=== PATIENT | male | born 1935 | race African-American/Black ===

== ENCOUNTER 2018-09-24 00:17 | Inpatient (IN) | payer OTHER, BC ==
--- NOTE | 2018-09-24 00:24 | PDOC ---
Attending Attestation - Resident Resident Name: Ronni Anderson - ED Attending Attestation I have performed the following: I have examined & evaluated the patient, The case was reviewed & discussed with the resident, I agree w/resident's findings & plan, Exceptions are as noted - HPI HPI: 09/24/18 01:30 83 year old male c/ hx of HTN, borderline DM, HLD, CHF, asthma/COPDprior stroke with no residual deficits BIBEMS for bipin díaz. History obtained from pt's girlfriend. The patient was in his usual state of health. Went to a event with the pt's girlfriend. At 9 pm, the patient's girlfriend noted that he seemed to be "limping" with his left leg. Initially, she didn't think much of it and thought that it was musculoskeletal. However, around 11 pm, she started to note that he had left facial droop, inability to move left arm and leg leg. She called EMS and pt was brought in as a code mohamud. EMS took a fingerstick and noted elevated glucose. Code mohamud activated here in ED. Pt had a stat noncontrast CT head. When I initially evaluated the patient, the patient had right eye gaze preference, left sided neglect, left facial droop, left arm and left leg weakness (no effort). Given pt unable to consent, two physician consent was obtained and a stat CTA of brain was ordered. CT head and CTA brain was negative. However, during the stay in the ED, the patient's symptoms have become increasingly improved and now demonstrates full strength in left upper and left lower extremity. No facial droop. But pt appears to be somewhat confused and altered. According to girlfriend, the patient was not recently ill. - Physicial Exam PE: 09/24/18 01:40 (Initial examination when I saw patient when he arrived). GENERAL: Awake, alert, but AAOx 1.5 (thinks its September but knows in hospital) in no acute distress HEAD: No signs of trauma EYES: EOMI, sclera anicteric, conjunctiva clear ENT: Auricles normal inspection, hearing grossly normal, nares patent, NECK: Normal ROM, supple LUNGS: Breath sounds equal, clear to auscultation bilaterally. No wheezes, and no crackles HEART: Regular rate and rhythm, normal S1 and S2, no murmurs, rubs or gallops ABDOMEN: Soft, nontender, No guarding, no rebound. No masses EXTREMITIES: Normal range of motion, no edema. No clubbing or cyanosis. No cords, erythema, or tenderness NEUROLOGICAL: +Left facial droop. no effort against left upper and left lower extremity. right gaze preference. Intermittently following directions. Has left sided neglect. SKIN: Warm, Dry, normal turgor, no rashes or lesions noted. - Critical Care Time Total Critical Care Time: 35 Critical Care Statement: The care of this patient involved high complexity decision making to prevent further life threatening deterioration of the patient 's condition and/or to evaluate & treat vital organ system(s) failure or risk of failure. - Medical Decision Making 09/24/18 01:50 Vital Signs Temp Pulse Resp BP Pulse Ox 98.1 F 104 H 20 167/91 98 09/24/18 00:17 09/24/18 00:17 09/24/18 00:17 09/24/18 00:17 09/24/18 00:17 I concerns were for ischemic stroke. The patient was finding symptomsconcerning for a right MCA stroke. Given the circumstances, we had made a decision to obtain a CT angiogram of the brain before the creatinine return. However, the patient's symptoms have resolved drastically but has persistent confusion and altered mental status. This be related to hyperglycemia? We'll need a full investigation including blood work. Rule out diabetic ketoacidosis. We'll need to rule out occult infectious etiology. Labs, chest x-ray. Admission to the hospital. 09/24/18 01:53 Pt signed out to night attending Dr. Villegas for further evaluation and management. NIH Stroke Scale - Last Known Well Date/Time & Onset Date Last Known Well: 09/24/18 Time Last Known Well: 21:00 - Initial Evaluation Level of consciousness: Alert Ask patient the month and their age: Answers one correctly Ask patient to open & close eyes; make fist and let go: Obeys both correctly Best gaze (horizontal eye movement): Partial gaze palsy Visual field testing: No visual field loss Facial paresis (Show teeth/raise eyebrows/close eyes tight): Partial paralysis ( total or near paralysis of lower face) Motor Function: Left Arm: No effort against gravity Motor Function: Right Arm: Normal (extends arm 90 (or 45) degrees for 10 seconds without drift Motor Function: Left Leg: Some effort against gravity Motor Function: Right Leg: Normal (extends leg 30 degrees for 5 seconds without drift) Limb Ataxia: No ataxia Sensory(Use pinprick test arms,legs,trunk,face/side to side): Normal Best language (Describe picture, name items, read sentences): Mild to moderate aphasia Dysarthria (read several words): Normal articulation Extinction and Inattention: Inattention or extinction bilaterally to one of the sensory modalities - Total Score NIH Stroke Scale Score: 11 tPA Exclusion checklist 3-4.5h - Time Elapsed Date last known well: 09/24/18 Time last known well: 21:00 Elaspsed time: 3 Day(s) and 13 Hour(s) and 28 Minutes - Thrombolytic Therapy Candidate Is patient eligible for thrombolytic therapy: No - Relative Exclusion Criteria 3-4.5 hr : No Rapid improvement: Yes Recent acute NM (w/in previous 3 months): No Seizure at onset with postictal residual neuro impairments: No Major surgery or serious trauma w/in previous 14 days: No Recent GI or hemorrhage (w/in previous 21 days): No - Add'l Relative Exclusion 3-4.5 hr Age > 80: Yes Hx of both diabetes AND prior ischemic stroke: Yes Taking an oral anticoagulant regardless of INR: No - Ineligibility reason(s) Reasons No tPA given: See reason(s) noted above
[2018-09-24] MEDS ORDERED: SODIUM CHLORIDE 1,000 ML IV SCH (00:30)
--- NOTE | 2018-09-24 01:04 | PDOC ---
History of Present Illness - General Chief Complaint: CVA/TIA Stated Complaint: STROKE Time Seen by Provider: 09/24/18 00:18 - History of Present Illness Initial Comments: 09/24/18 00:58 83 yo M with h/o HTN, HLD, CHF, COPD, CVA ( 2016), not on anticoagulation BIBA with left sided facial droop, LUE, and LLE weakness. EMS reprots patient slightly hypertensive SBP 160's, and BS~elevated (out of range). Patient spouse at bedside to assist in report. She states that patient was in normal state of health prior to 1700 (09-23-18). She states that patient developed left sided limping gait when walking from library to car. Patient then developed left arm weakness, and left facial drooping shortly after. Spouse reports that patient then was unable to follow commands, and avoided eye contact, speaking in opposite direction of spouse. Patient then developed nonsensible speech, and appeared that he did not comprehend spouses speech or questions. Patient denies WOODWARD, vision change, palpitations, cough, wheezing, orthopena, PND , leg swelling/pain, F,C, CP, SOB, urinary complaints, hematuria, BPR, abdominal pain, diarrhea, constipation, lightheadedness. PMHx: as noted above. Patient does not f/w neurology. ROS: as noted Allergies: NKDA Past History - Past Medical History Allergies/Adverse Reactions: Allergies Allergy/AdvReac Type Severity Reaction Status Date / Time No Allergy Information Allergy Verified 09/24/18 00:26 Available Home Medications: Ambulatory Orders Albuterol Sulfate [Proair Hfa] 8.5 gm IH DAILY 09/24/18 Allopurinol [Zyloprim -] 300 mg PO DAILY 09/24/18 Aspirin [ASA -] 325 mg PO DAILY 09/24/18 Atorvastatin Ca [Lipitor] 80 mg PO HS 09/24/18 Clopidogrel Bisulfate [Clopidogrel] 75 mg PO DAILY 09/24/18 Fluticasone/Umeclidin/Vilanter [Trelegy Ellipta 100-62.5-25] 1 each IH DAILY 09/13 Hydrochlorothiazide 12.5 mg PO DAILY 09/24/18 Montelukast Na [Singulair -] 10 mg PO HS 09/24/18 Nebivolol HCl [Bystolic] 20 mg PO DAILY 09/24/18 Olmesartan/Hydrochlorothiazide [Benicar Hct 40-12.5 mg Tablet] 1 each PO DAILY 09/24/18 Pantoprazole Sodium 40 mg PO DAILY 09/24/18 predniSONE 5 mg PO DAILY 09/24/18 - Suicide/Smoking/Psychosocial Hx Smoking History: Never smoked Have you smoked in the past 12 months: No Information on smoking cessation initiated: No Hx Alcohol Use: Yes (occasional) Drug/Substance Use Hx: No Review of Systems - Review of Systems Comments:: 09/24/18 01:18 GENERAL/CONSTITUTIONAL: No fever or chills. No weakness. HEAD, EYES, EARS, NOSE AND THROAT: No change in vision. No ear pain or discharge. No sore throat. CARDIOVASCULAR: No chest pain or shortness of breath RESPIRATORY: No cough, wheezing, or hemoptysis. GASTROINTESTINAL: + nausea, vomiting. No diarrhea or constipation. GENITOURINARY: No dysuria, frequency, or change in urination. MUSCULOSKELETAL: No joint or muscle swelling or pain. No neck or back pain. SKIN: No rash NEUROLOGIC: + change in strength/sensation. No headache, vertigo, loss of consciousness, or c ENDOCRINE: No increased thirst. No abnormal weight change HEMATOLOGIC/LYMPHATIC: No anemia, easy bleeding, or history of blood clots. ALLERGIC/IMMUNOLOGIC: No hives or skin allergy. *Physical Exam - Vital Signs Last Vital Signs Temp Pulse Resp BP Pulse Ox 98.1 F 104 H 20 167/91 98 09/24/18 00:17 09/24/18 00:17 09/24/18 00:17 09/24/18 00:17 09/24/18 00:17 - Physical Exam Comments: 09/24/18 01:10 GENERAL: Awake, alert, oriented to self and date, in no acute distress HEAD: + Left sided lower facial droop, with depressed lateral comissure of mouth , sparing forehead. No signs of trauma, normocephalic, atraumatic EYES: PERRLA, EOMI, sclera anicteric, conjunctiva clear ENT: Auricles normal inspection, hearing grossly normal, nares patent, oropharynx clear without exudates. Moist mucosa NECK: Normal ROM, supple, no lymphadenopathy, JVD, or masses LUNGS: No distress, speaks full sentences, clear to auscultation bilaterally HEART: Regular rate and rhythm, normal S1 and S2, no murmurs, rubs or gallops, peripheral pulses normal and equal bilaterally. ABDOMEN: Soft, nontender, normoactive bowel sounds. No guarding, no rebound. No masses EXTREMITIES :4+/5 RUE/RLE, 3/5 LUE, 2/5 LLE. Diminished sensation to pinprick LUE/LLE. Normal inspection, Normal range of motion, no edema. Patient speech is sparse, and limited comprehension, with non repetitive utterances, of sentences. No clubbing or cyanosis. NEUROLOGICAL: Cranial nerves II through XII grossly intact. no focal sensorimotor deficits SKIN: Warm, Dry, normal turgor, no rashes or lesions noted NIH Stroke Scale - Last Known Well Date/Time & Onset Date Last Known Well: 09/23/18 Time Last Known Well: 17:00 - Initial Evaluation Level of consciousness: Alert Ask patient the month and their age: Answers both correctly Ask patient to open & close eyes; make fist and let go: Obeys both correctly Best gaze (horizontal eye movement): Normal Visual field testing: No visual field loss Facial paresis (Show teeth/raise eyebrows/close eyes tight): Partial paralysis ( total or near paralysis of lower face) Motor Function: Left Arm: Drift Motor Function: Right Arm: Normal (extends arm 90 (or 45) degrees for 10 seconds without drift Motor Function: Left Leg: No effort against gravity Motor Function: Right Leg: Normal (extends leg 30 degrees for 5 seconds without drift) Limb Ataxia: Present in one limb Sensory(Use pinprick test arms,legs,trunk,face/side to side): Mild to moderate decrease in sensation Best language (Describe picture, name items, read sentences): Mild to moderate aphasia Dysarthria (read several words): Normal articulation Extinction and Inattention: No abnormality - Total Score NIH Stroke Scale Score: 9 tPA Exclusion Checklist 0-3hr - Exclusion Criteria 0-3hr SBP greater than 185 or DBP greater than 110mmHg despite tx: No Recent IC/spinal surgery,head trauma or stroke w/in last 3mo: No Hx of previous IC hemorrhage, IC neoplasm, AVM or aneurysm: No Active internal bleeding: No Moderate Sedation - Procedure Monitoring Vital Signs: Procedure Monitoring Vital Signs Temperature 98.1 F 09/24/18 00:17 Pulse Rate 104 H 09/24/18 00:17 Respiratory Rate 20 09/24/18 00:17 Blood Pressure 167/91 09/24/18 00:17 O2 Sat by Pulse Oximetry (%) 98 09/24/18 00:17 Critical Care Time/MDM Note Total Critical Care Time: 90 Critical Care Statement: The care of this patient involved high complexity decision making to prevent further life threatening deterioration of the patient 's condition and/or to evaluate & treat vital organ system(s) failure or risk of failure. - Medical Decision Making Note: 09/24/18 01:03 83 yo M with h/o HTN, HLD, CHF, COPD, ( 2016), not on anticoagulation BIBA with left sided facial droop, LUE, and LLE weakness. BP 167/91, HR 104, vitals otherwise wnl, AF. Initial BS reading noted by EMS ~out of range. NIHSS~9. Code mohamud initiated in ED. CTH to assess for possible CVA. Will also assess for VBI/ TIA, cardiac dysarrythmias, hypoglycemia, electrolyte abnml, metabolic and toxic derangements, acid-base disturbances, infection. Ed Course: Stroke order set, precautions CTH with no evidence of hemmorhage. Consented for patient to undergoe CTA despite no baseline labs, or renal function obtained due to NIHSS ~9, and non improving serial neuro checks. Patient altered mental status and unable to consent, but spouse at bedside consents to obtaining study. CTH: FINDINGS: The ventricular system is midline and nondilated mild-to- moderate cortical atrophy and mild small vessel ischemic changes are noted. There is no bleed, mass, extra- axial fluid collection or mass effect. No skull fracture or skull lesion is identified. Left maxillary sinus is completely opacified, consistent with sinusitis there is also mild right maxillary sinus mucosal thickening. The other paranasal sinuses and mastoid air cells are clear. IMPRESSION: No acute intracranial pathology. Left maxillary sinusitis. CTA HEAD: FINDINGS: The right and left anterior, middle and posterior cerebral arteries are normal without clot, occlusion, high-grade stenosis or discrete aneurysm formation. Distal vertebral basilar system is normal. The distal right and left internal carotid arteries are patent. No areas of abnormally increased or decreased enhancement. IMPRESSION: Normal CT angiogram head. 09/24/18 01:41 neuro consult placed. 09/24/18 01:43 Neuro exam with improved facial droop, LUE, LLE strength. 09/24/18 02:34 BUN/Cr: 20/1.4 BS~517 Ca: 6.8, albumin 3.1 , corrected ca 7.1 EKG: NSR with 1st degree sinus arrythmia, nml interval axis and QT. +LAD. Absent FELICIA, STD. trop 0.05 UA: Neg 09/24/18 03:[address] Phillips. Admitted. 09/24/18 05:[address] phillips and Dr. Vernon patient to be admitted to ICU for HHS NS, Pottasium chloride x 3 09/24/18 05:35 Rectal temp 101.2 Tylenol 1000 mg IV *DC/Admit/Observation/Transfer Diagnosis at time of Disposition: TIA (transient ischemic attack) - Discharge Dispostion Condition at time of disposition: Fair Decision to Admit order: Yes - Referrals - Patient Instructions - Post Discharge Activity Imaging - Results Cat Scan: Other (Patient Information: : 1935 Order Type: Preliminary Name: KERA HIGGINS Sex: M Study Description: CT CTA HEAD Modality: CT Location: [facility] Referring Physician: STACY SHELL Comments: Ryan Mishra MD wrote on Sep 24, 2018 at 01:10 AM: Referring Physician: STACY SHELL Patient Name: RONALDO COTE THIS IS A PRELIMINARY REPORT FROM [facility] IN[facility] TECHNICIAN DATE OF SERVICE: 2018-09-24 00:43:04 IMAGES: [id number] EXAM: BRAIN CTA (STROKE) HISTORY: Rule out stroke COMPARISON: None. FINDINGS: The right and left anterior, middle and posterior cerebral arteries are normal without clot, occlusion, high-grade stenosis or discrete aneurysm formation. Distal vertebral basilar system is normal. The distal right and left internal carotid arteries are patent. No areas of abnormally increased or decreased enhancement. IMPRESSION: Normal CT angiogram head. CONFIDENTIALITY NOTICE: This information is intended only for the use of the recipient(s) named above. If you are not the intended recipient, or a person responsible for delivering it to the intended recipient, you are hereby notified that any disclosure, copying, distribution or use of any of the information contained in or attached to this transmission is STRICTLY PROHIBITED. If you have received this transmission in error, please immediately notify [facility] and destroy the original transmission and its attachments without saving them in any manner [address] [place] [address] Phone : [phone] Fax: Email: [email or web address] Web : [email or web address] Patient Information: : 1935 Order Type: Preliminary Name: KERA HIGGINS Sex: M Study Description: CT CTA HEAD Modality: CT Location: [facility] Referring Physician: STACY SHELL One or more of the following dose reduction techniques were used: automated exposure control, adjustment of the mA and/or kV according to patient size, use of iterative reconstructive technique. THIS DOCUMENT HAS BEEN ELECTRONICALLY SIGNED Fareed Mishra MD 09/24/2018 01:09 EST M.D. Please call [facility] [phone] ([phone] with questions. Ryan Mishra MD Clinicians - Please contact [facility] with further questions at [phone]) Patients - Please contact your Ordering Provider with questions.) Other: Other (Patient Information: : 1935 Order Type: Preliminary Name: KERA HIGGINS Sex: M Study Description: CT HEAD Modality: CT Location: [facility] Referring Physician: STACY SHELL ADDENDUM Comments: Ryan Mishra MD wrote on Sep 24, 2018 at 12:49 AM: Referring Physician: STACY COTE This finding was verbally communicated to Dr. Stacy MD on WedSeptember 24 2018 00:48:02 EST. One or more of the following dose reduction techniques were used: automated exposure control, adjustment of the mA and/or kV according to patient size, use of iterative reconstructive technique. THIS DOCUMENT HAS BEEN ELECTRONICALLY SIGNED Fareed Mishra MD 09/24/2018 00:48 EST M.D. Please call [facility] [phone] with questions. Ryan Mishra MD Comments: Ryan Mishra MD wrote on Sep 24, 2018 at 12:39 AM: Referring Physician: STACY SHELL CONFIDENTIALITY NOTICE: This information is intended only for the use of the recipient(s) named above. If you are not the intended recipient, or a person responsible for delivering it to the intended recipient, you are hereby notified that any disclosure, copying, distribution or use of any of the information contained in or attached to this transmission is STRICTLY PROHIBITED. If you have received this transmission in error, please immediately notify [facility] and destroy the original transmission and its attachments without saving them in any manner [address] [place] [address] [place] [address] Phone: [phone] ([phone] Fax: Email: [email or web address] Web: [email or web address] Patient Information: : 1935 Order Type: Preliminary Name: KERA HIGGINS Sex: M Study Description: CT HEAD Modality : CT Location: [facility] Referring Physician: STACY SHELL Patient Name: RONALDO COTE THIS IS A PRELIMINARY REPORT FROM [facility] TECHNICIAN DATE OF SERVICE: 2018-09-24 00:19:25 IMAGES: [id number] EXAM: HEAD CT (STROKE) HISTORY: Left sided weakness COMPARISON: None. FINDINGS: The ventricular system is midline and nondilated [id number] cortical atrophy and mild small vessel ischemic changes are noted. There is no bleed, mass, extra-axial fluid collection or mass effect. No skull fracture or skull lesion is identified. Left maxillary sinus is completely opacified, consistent with sinusitis there is also mild right maxillary sinus mucosal thickening. The other paranasal sinuses and mastoid air cells are clear. IMPRESSION: No acute intracranial pathology. Left maxillary sinusitis. One or more of the following dose reduction techniques were used: automated exposure control, CONFIDENTIALITY NOTICE: This information is intended only for the use of the recipient(s) named above. If you are not the intended recipient, or a person responsible for delivering it to the intended recipient, you are hereby notified that any disclosure, copying, distribution or use of any of the information contained in or attached to this transmission is STRICTLY PROHIBITED. If you have received this transmission in error, please immediately notify [facility] and destroy the original transmission and its attachments without saving them in any manner [address] [place] [address] Phone: [phone] ( [phone]) Fax: Email: [email or web address] Web: [email or web address] Patient Information: : 1935 Order Type: Preliminary Name: KERA HIGGINS Sex: M Study Description: CT HEAD Modality: CT Location: [facility] Referring Physician: STACY SHELL adjustment of the mA and/or kV according to patient size, use of iterative reconstructive technique. THIS DOCUMENT HAS BEEN ELECTRONICALLY SIGNED Fareed Mishra MD 09/24/2018 00:37 GUANACO Stewart. Please call [facility] [phone] ([phone] with questions. Ryan Mishra MD Clinicians - Please contact [facility] with further questions at [phone] ([phone] Patients - Please contact your Ordering Provider with questions)
[2018-09-24 01:43] LABS: BASO % 0.5 % (0-2.0); HEMATOCRIT 37.2 % (35.4-49); HEMOGLOBIN 12.6 GM/dL (11.7-16.9); LYMPH % 15.5 % (8-40); MCH 30.7 pg (25.7-33.7); MCHC 33.7 g/dl (32.0-35.9); MEAN PLT VOLUME 9.4 fl (7.5-11.1); MONO % 7.4 % (3.8-10.2); NEUT % 74.6 % (42.8-82.8); PLATELET COUNT 154 K/MM3 (134-434); RBC 4.09 M/mm3 (4.00-5.60); RDW 13.5 % (11.9-15.9); WHITE BLOOD COUNT 4.9 K/mm3 (4.0-10.0)
[2018-09-24 01:53] LABS: URINE APPEARANCE CLEAR; URINE BILIRUBIN NEGATIVE (<2.0 mg/dL); URINE COLOR STRAW; URINE GLUCOSE (UA) 3+ (NEGATIVE); URINE KETONE NEGATIVE (NEGATIVE); URINE LEUK ESTERASE NEGATIVE (NEGATIVE); URINE NITRITE NEGATIVE (NEGATIVE); URINE PROTEIN NEGATIVE (NEGATIVE); URINE UROBILINOGEN NEGATIVE mg/dL (0.2-1.0)
[2018-09-24 01:56] LABS: INR 1.13 (0.83-1.09); PROTHROMBIN TIME (PATIENT) 13.4 SEC (9.7-13.0)
[2018-09-24 02:02] LABS: EPI CELLS RARE /HPF (FEW)
[2018-09-24 02:26] LABS: GLUCOSE,RANDOM 517 mg/dL (74-106)
[2018-09-24 02:27] LABS: CO2 24 mmol/L (21-32); CREATININE 1.4 mg/dL (0.55-1.3)
[2018-09-24 02:28] LABS: ALBUMIN 3.1 g/dl (3.4-5.0); CALCIUM 6.8 mg/dL (8.5-10.1)
--- NOTE | 2018-09-24 03:09 | PN ---
Teaching Attending Note Name of Resident: Tony Mckay ATTENDING PHYSICIAN STATEMENT I saw and evaluated the patient. I reviewed the resident's note and discussed the case with the resident. I agree with the resident's findings and plan as documented. SUBJECTIVE: Patient is an 83 year old man with PMH of HTN, HLD, CHF, COPD, CVA ( 2016), not on anticoagulation, boderline DM presenting with left sided facial droop, LUE, and LLE weakness. EMS reprots patient slightly hypertensive with SBP 160's, and BS~elevated (out of range). Patient's girlfriend at bedside says that patient was in normal state of health prior to 1700 (09-23-18). She states that patient developed left sided limping gait when walking from library to car. Patient then developed left arm weakness, and left facial drooping shortly after. She reports that patient then was unable to follow commands, and avoided eye contact , speaking in opposite direction of spouse. Patient then developed nonsensible speech, and appeared that he did not comprehend spouses speech or questions. Patient denies headache, vision change, palpitations, cough, wheezing, orthopena , PND, leg swelling/pain, fever, chills, chest pain, SOB, urinary complaints, hematuria, abdominal pain, diarrhea, constipation or lightheadedness. OBJECTIVE: Somnolent but arousable Vital Signs Period Temp Pulse Resp BP Sys/Rick Pulse Ox Last 24 Hr 98.1 F 104 20 167/91 98 HEENT: No Jaundice, eye redness or discharge, PERRLA, EOMI. Normocephalic, atraumatic. External ears are normal; No nasal discharge. Neck: Supple, nontender. No palpable adenopathy or thyromegaly. No JVD Chest: Good effort. Clear to auscultation and percussion. Heart: Regular. No S3, rub or murmur Abdomen: Not distended, soft, nontender and no HSM. No rebound or guarding. Normoactive bowel sounds. Ext: Peripheral pulses intact. No leg edema. Skin: Warm and dry. No petechiae, rash or ecchymosis. Neuro: Somnolent but arousable. Left facial droop and left sided weakness. Unable to follow commands. Sluggish. Sensation grossly intact in all four extremities. Current Medications Generic Name Dose Route Start Last Admin Trade Name Freq PRN Reason Stop Dose Admin Sodium Chloride 1,000 mls @ 42 mls/hr 09/24/18 00:30 09/24/18 01:27 Normal Saline - IV 42 mls/hr ASDIR NESSA Administration Home Medications Medication Instructions Recorded Albuterol Sulfate [Proair Hfa] 8.5 gm IH DAILY 09/24/18 Allopurinol [Zyloprim -] 300 mg PO DAILY 09/24/18 Aspirin [ASA -] 325 mg PO DAILY 09/24/18 Atorvastatin Ca [Lipitor] 80 mg PO HS 09/24/18 Clopidogrel Bisulfate [Clopidogrel] 75 mg PO DAILY 09/24/18 Fluticasone/Umeclidin/Vilanter 1 each IH DAILY 09/24/18 [Trelegy Ellipta 100-62.5-25] Hydrochlorothiazide 12.5 mg PO DAILY 09/24/18 Montelukast Na [Singulair -] 10 mg PO HS 09/24/18 Nebivolol HCl [Bystolic] 20 mg PO DAILY 09/24/18 Olmesartan/Hydrochlorothiazide 1 each PO DAILY 09/24/18 [Benicar Hct 40-12.5 mg Tablet] Pantoprazole Sodium 40 mg PO DAILY 09/24/18 predniSONE 5 mg PO DAILY 09/24/18 Abnormal Lab Results 09/24/18 09/24/18 09/24/18 01:33 01:33 01:45 PT with INR 13.40 H INR 1.13 H Sodium 134 L Potassium 3.3 L BUN 20 H Creatinine 1.4 H Random Glucose 517 H* Calcium 6.8 L* Total Protein 5.7 L Albumin 3.1 L Ur Specific [place] 1.042 H Urine Glucose (UA) 3+ H Urine Blood 1+ H ASSESSMENT AND PLAN: 1. 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 CT scan and CTA of brain didnot reveal any acute abnormality. TpA not indicated. ER staff say his symptoms and clinical findings improved while in the ER. Will treat with multiple doses of IV KCL and raise serum potassium before giving IV insulin. HCTZ likely contributed to severe hypokalemia. Check Mg+ level and hydrate with IV NS slowly. Will get a brain MRI if AMS does not improve in 24 hours. Consult neurology. Once stable will craft an appropriate outpatient diabetic drug treatment regimen for him. Will provide comprehensive diabetes care with patient teaching and counseling about the importance of adherence to prescribed diabetes regimen , euglycemia, eye care and foot care. 2. Hypoalbuminemia - Possibly due to combined effects of malnutrition and inflammation associated with comorbid chronic conditions. Will ensure adequate dietary protein intake and also consult bricklayer apprentice. 3. PATRICK - Has risk factors for CKD. Likely has PATRICK due to dehydration. Will consult nephrology and avoid nephrotoxic agents such as NSAIDS, aminoglycosides , contrast dyes and certain Alternative medicine products. 4. Obesity - Will provide patient all the necessary assistance, counseling and positive reinforcement to facilitate weight loss. Consult bricklayer apprentice. 5. Uncontrolled Hypertension - Restart outpatient antihypertensive drugs and revise regimen to ensure smooth [id number] good BP control. Nonpharmacologic measures to control hypertension like weight loss, salt restriction and exercise discussed. 6. DVT prophylaxis - Heparin 5000u sq tid. 7. Advance directives - Full code
--- NOTE | 2018-09-24 03:46 | HP ---
CHIEF COMPLAINT: left side weakness, confusion PCP: Ashley Hernandez HISTORY OF PRESENT ILLNESS: history obtained from his girl friend and Ed records as pt is poor historian and confused 83 yo M with h/o HTN, HLD, CHF, COPD, CVA ( 2016), not on anticoagulation BIBA with left sided facial droop, LUE, and LLE weakness. EMS reports patient slightly hypertensive SBP 160's, and BS~elevated (out of range). Patient spouse at bedside to assist in report. She states that patient was in normal state of health prior to 1700 (09-23-18). She states that patient developed left sided limping gait when walking from library to car. Patient then developed left arm weakness, and left facial drooping shortly after. Spouse reports that patient then was unable to follow commands, and avoided eye contact, speaking in opposite direction of spouse. Patient then developed non sensible speech, and appeared that he did not comprehend spouses speech or questions. Patient spouse denies history of WOODWARD, vision change, palpitations, cough, wheezing, orthopena, PND, leg swelling/pain, F,C, CP, SOB, urinary complaints, hematuria, BPR, abdominal pain, diarrhea, constipation, lightheadedness. ER course was notable for: (1)CT head , CTA (2)cbc , cmp (3)IV fluids Recent Travel:denies PAST MEDICAL HISTORY: as per HPI PAST SURGICAL HISTORY: unknown at this point as pt is confused Family History:non contributory Allergies No Allergy Information Available Allergy (Verified 09/24/18 00:26) HOME MEDICATIONS: Home Medications Medication Instructions Recorded Albuterol Sulfate [Proair Hfa] 8.5 gm IH DAILY 09/24/18 Allopurinol [Zyloprim -] 300 mg PO DAILY 09/24/18 Aspirin [ASA -] 325 mg PO DAILY 09/24/18 Atorvastatin Ca [Lipitor] 80 mg PO HS 09/24/18 Clopidogrel Bisulfate [Clopidogrel] 75 mg PO DAILY 09/24/18 Fluticasone/Umeclidin/Vilanter 1 each IH DAILY 09/24/18 [Trelegy Ellipta 100-62.5-25] Hydrochlorothiazide 12.5 mg PO DAILY 09/24/18 Montelukast Na [Singulair -] 10 mg PO HS 09/24/18 Nebivolol HCl [Bystolic] 20 mg PO DAILY 09/24/18 Olmesartan/Hydrochlorothiazide 1 each PO DAILY 09/24/18 [Benicar Hct 40-12.5 mg Tablet] Pantoprazole Sodium 40 mg PO DAILY 09/24/18 predniSONE 5 mg PO DAILY 09/24/18 REVIEW OF SYSTEMS not able to obtaine PHYSICAL EXAMINATION Vital Signs - 24 hr 09/24/18 00:17 Temperature 98.1 F Pulse Rate 104 H Respiratory 20 Rate Blood Pressure 167/91 O2 Sat by Pulse 98 Oximetry (%) GENERAL: aaox2 confused , lethargic , affected vision on left eye since yesterday with left side neglect HEAD: NC/AT left facial drop EYES: JAVI, ENT: dry MM NECK: supple LUNGS: Breath sounds equal, clear to auscultation bilaterally. No wheezes, and no crackles. No accessory muscle use. HEART: Regular rate and rhythm, normal S1 and S2 without murmur, rub or gallop. ABDOMEN: Soft, nontender, not distended, normoactive bowel sounds, UPPER EXTREMITIES: 2+ pulses, warm, well-perfused. No cyanosis. No clubbing. No peripheral edema.left arm 3/5 strength , LOWER EXTREMITIES: 2+ pulses, warm, well-perfused. No calf tenderness. No peripheral edema. left leg 3/5 strenth , NEUROLOGICAL: left side weakness , 3/5 upper and lower ext , left facial drop , left side neglect , affected vision on left eye since yesterday PSYCHIATRIC: confused , follow simple commands SKIN: Warm, dry, Laboratory Results - last 24 hr 09/24/18 09/24/18 09/24/18 01:33 01:33 01:33 WBC 4.9 RBC 4.09 Hgb 12.6 Hct 37.2 MCV 91.0 MCH 30.7 MCHC 33.7 RDW 13.5 Plt Count 154 MPV 9.4 Absolute Neuts (auto) 3.6 Neutrophils % 74.6 Lymphocytes % 15.5 Monocytes % 7.4 Eosinophils % 2.0 Basophils % 0.5 Nucleated RBC % 0 PT with INR 13.40 H INR 1.13 H Sodium 134 L Potassium 3.3 L Chloride 101 Carbon Dioxide 24 Anion Gap 9 BUN 20 H Creatinine 1.4 H Creat Clearance w eGFR 48.40 Random Glucose 517 H* Calcium 6.8 L* Total Bilirubin 0.4 AST 15 ALT 23 Alkaline Phosphatase 113 Creatine Kinase 156 Troponin I 0.05 Total Protein 5.7 L Albumin 3.1 L Triglycerides 115 Cholesterol 142 Total LDL Cholesterol 73 HDL Cholesterol 55 Urine Color Urine Appearance Urine pH Ur Specific [place] Urine Protein Urine Glucose (UA) Urine Ketones Urine Blood Urine Nitrite Urine Bilirubin Urine Urobilinogen Ur Leukocyte Esterase Urine WBC (Auto) Urine RBC (Auto) Ur Epithelial Cells Acetone, Qual Blood Type Antibody Screen 09/24/18 09/24/18 09/24/18 01:33 01:33 01:45 WBC RBC Hgb Hct MCV MCH MCHC RDW Plt Count MPV Absolute Neuts (auto) Neutrophils % Lymphocytes % Monocytes % Eosinophils % Basophils % Nucleated RBC % PT with INR INR Sodium Potassium Chloride Carbon Dioxide Anion Gap BUN Creatinine Creat Clearance w eGFR Random Glucose Calcium Total Bilirubin AST ALT Alkaline Phosphatase Creatine Kinase Troponin I Total Protein Albumin Triglycerides Cholesterol Total LDL Cholesterol HDL Cholesterol Urine Color Straw Urine Appearance Clear Urine pH 6.0 Ur Specific [place] 1.042 H Urine Protein Negative Urine Glucose (UA) 3+ H Urine Ketones Negative Urine Blood 1+ H Urine Nitrite Negative Urine Bilirubin Negative Urine Urobilinogen Negative Ur Leukocyte Esterase Negative Urine WBC (Auto) 1 Urine RBC (Auto) 1 Ur Epithelial Cells Rare Acetone, Qual Trace Blood Type O POSITIVE Antibody Screen Negative CBC, BMP 09/24/18 01:33 09/24/18 01:33 ASSESSMENT/PLAN: 83 yo M with h/o HTN, HLD, CHF, COPD, CVA ( 2016), not on anticoagulation BIBA with left sided facial droop, LUE, and LLE weakness, was found to have hyper glycemia of 517 and hypokalemia 3.3 admitted to ICU for stroke work up and hyperglycemia . # acute metabolic encephalopathy due to hyperglycemia vs HHS vs CVA/ TIA vs seizure * Head CT negative will repeat in 24 hour vs brain MRI (pt has h.o stroke in 2016 with no residual ) * left side weakness upper and lower ext 3/5 muscle strength , left side neglect , left facial drop * ASA in ED , pt refuse * Monitor K, BMP q 3 hr , BGM Q 1 hr , Neuro check q 1-2 hr * IV fluids NS bolus and maintenace with K * after K around 5 we can start pt on insulin * goddard cx (blood , urine m sputum ) cx to R/O infection as cause of hyper glycemia , and pt has fever 101 as well * AG 9 , Serum osmolality 303 * shelter monitor , blood pressure monitor , admit to icu , monitor lytes mg, p , k * Neuro consult * stroke work up , Echo cardiogram , MRA , Doppler carotid , permissive HTN # PATRICK likely pre renal due to hhs vs low intake , unknown base line, repeat lab after hydration * Has risk factors for CKD. * and avoid nephrotoxic agents such as NSAIDS, aminoglycosides, contrast dyes and certain Alternative medicine products. # Obesity * BMI 33.9 * educated about life style and diet modification # Hypertension: uncontrolled , allowe for permissive HTN in term of stroke * Restart home meds * drop 15 % only first 24 hour * monitor BP # COPD in no exacerbation * resume home meds # Proph * DVT prophylaxis : Heparin 5000u sq tid. * GI: protonix 40 SQ daily # code status: Full code Visit type - Emergency Visit Emergency Visit: Yes ED Registration Date: 09/24/18 Care time: The patient presented to the Emergency Department on the above date and was hospitalized for further evaluation of their emergent condition. - New Patient This patient is new to me today: Yes Date on this admission: 09/24/18 - Critical Care Critical Care patient: Yes Total Critical Care Time (in minutes): 45 Critical Care Statement: The care of this patient involved high complexity decision making to prevent further life threatening deterioration of the patient 's condition and/or to evaluate & treat vital organ system(s) failure or risk of failure.
[2018-09-24] MEDS ORDERED: ASPIRIN 81 MG CHEWABLE TABLETS PO ONE ×2 (03:48→09:52)
[2018-09-24] MEDS ORDERED: ASPIRIN 81 MG CHEWABLE TABLETS ONE (03:51)
[2018-09-24 04:26] LABS: ALK PHOS 113 U/L (45-117); ANION GAP 9 MMOL/L (8-16); BILIRUBIN,TOTAL 0.4 mg/dL (0.2-1); BLOOD UREA NITROGEN 20 mg/dL (7-18); CHLORIDE 101 mmol/L (98-107); CHOLESTEROL 142 mg/dL (50-200); HDL CHOLESTEROL 55 mg/dL (40-60); POTASSIUM 3.3 mmol/L (3.5-5.1); SGOT/AST 15 U/L (15-37); SGPT/ALT 23 U/L (13-61); SODIUM 134 mmol/L (136-145); TOT PROT 5.8 g/dl (6.4-8.2); TRIGLYCERIDES 115 mg/dL (0-150)
[2018-09-24] MEDS ORDERED: SODIUM CHLORIDE IV ONE (05:09)
[2018-09-24] MEDS ORDERED: KCL 10 MEQ IVPB 10 MEQ/100 ML INFUS.BAG IVPB ONE (05:29)
[2018-09-24] MEDS ORDERED: ACETAMINOPHEN 1000 MG/100 ML VIAL (NON FORMULARY) IVPB ONE (05:35)
[2018-09-24] MEDS: KCL 10 MEQ IVPB 10 MEQ/100 ML INFUS.BAG IVPB SCH ×5 (05:37→18:47)
--- NOTE | 2018-09-24 05:40 | CONSULT ---
Consultation: REQUESTING PROVIDER: Dr. Marin CONSULT REQUEST: We have been asked to medically evaluate this patient for hyperglycemia HISTORY OF PRESENT ILLNESS: 83 yo M with a hx of HTN, HLD, CHF, COPD, CVA (2016 without residual deficits), not on anticoagulation presented initially to the emergency department with left sided facial droop, LUE, and LLE weakness. Per EMS, the patient had a SBP 160s with BG elevated outside of their monitoring system. Patient's significant other (SO) was present at bedside and provided most of the history. Per the SO, he was last normal at approximately 9pm. The patient was at a concert, ate what is suspected to be desert like treats like cake, and began developing left sided limping gait when walking from the concert to the car. The symptoms worsened throughout the night, but the SO denies the patient went to sleep. He developed non-sensible speech and appeared to her that he wasn't able to comprehend her speech. Surgical hx: left sided hip replacement Allergies: NKDA REVIEW OF SYSTEMS: Limited due to AMS CONSTITUTIONAL: generalized weakness Absent: fever, chills, diaphoresis, malaise, loss of appetite, weight change HEENT: Absent: rhinorrhea, nasal congestion, throat pain, throat swelling, difficulty swallowing, mouth swelling, ear pain, eye pain, visual changes CARDIOVASCULAR: Absent: chest pain, syncope, palpitations, irregular heart rate, lightheadedness , peripheral edema RESPIRATORY: Absent: cough, shortness of breath, dyspnea with exertion, orthopnea, wheezing, stridor, hemoptysis GASTROINTESTINAL: Absent: abdominal pain, abdominal distension, nausea, vomiting, diarrhea, constipation, melena, hematochezia GENITOURINARY: Absent: dysuria, frequency, urgency, hesitancy, hematuria, flank pain, genital pain MUSCULOSKELETAL: Absent: myalgia, arthralgia, joint swelling, back pain, neck pain SKIN: Absent: rash, itching, pallor HEMATOLOGIC/IMMUNOLOGIC: Absent: easy bleeding, easy bruising, lymphadenopathy, frequent infections ENDOCRINE: Absent: unexplained weight gain, unexplained weight loss, heat intolerance, cold intolerance NEUROLOGIC: Absent: headache, focal weakness or paresthesias, dizziness, unsteady gait, seizure, mental status changes, bladder or bowel incontinence PSYCHIATRIC: Absent: anxiety, depression, suicidal or homicidal ideation, hallucinations. PHYSICAL EXAMINATION Vital Signs - 24 hr 09/24/18 09/24/18 00:17 04:34 Temperature 98.1 F Pulse Rate 104 H Pulse Rate [ 115 H Right Radial] Respiratory 20 20 Rate Blood Pressure 167/91 Blood Pressure 115/104 H [Right Arm] O2 Sat by Pulse 98 95 Oximetry (%) GENERAL: Awake, alert, and oriented to name, but does not know name of place or date. HEAD: Normal with no signs of trauma. EYES: Pupils equal, round and reactive to light, extraocular movements intact, sclera anicteric, conjunctiva clear. No lid lag. EARS, NOSE, THROAT: Ears normal, nares patent, oropharynx clear without exudates. Moist mucous membranes. NECK: Normal range of motion, supple without lymphadenopathy, JVD, or masses. LUNGS: Breath sounds equal, clear to auscultation bilaterally. No wheezes, and no crackles. No accessory muscle use. HEART: Regular rate and rhythm, normal S1 and S2 without murmur, rub or gallop. ABDOMEN: Soft, nontender, not distended, normoactive bowel sounds, no guarding, no rebound, no masses. No hepatomegaly or splenomegaly. MUSCULOSKELETAL: Normal range of motion at all joints. No bony deformities or tenderness. No CVA tenderness. UPPER EXTREMITIES: 2+ pulses, warm, well-perfused. No cyanosis. No clubbing. Cap refill <2 seconds. No peripheral edema. LOWER EXTREMITIES: 2+ pulses, warm, well-perfused. No calf tenderness. No peripheral edema. NEUROLOGICAL: Cranial nerves II-XII intact. Normal speech. No obvious facial asymmetry. Right sided motor strength 5/5, left LE 5/5, left UE 4/5. Left sided hemineglect. Possible sensory deficit on left vs hemineglect. PSYCHIATRIC: anxious. poor eye contact. SKIN: Warm, dry, normal turgor, no rashes or lesions noted. Laboratory Results - last 24 hr 09/24/18 09/24/18 09/24/18 01:33 01:33 01:33 WBC 4.9 RBC 4.09 Hgb 12.6 Hct 37.2 MCV 91.0 MCH 30.7 MCHC 33.7 RDW 13.5 Plt Count 154 MPV 9.4 Absolute Neuts (auto) 3.6 Neutrophils % 74.6 Lymphocytes % 15.5 Monocytes % 7.4 Eosinophils % 2.0 Basophils % 0.5 Nucleated RBC % 0 PT with INR 13.40 H INR 1.13 H Sodium 134 L Potassium 3.3 L Chloride 101 Carbon Dioxide 24 Anion Gap 9 BUN 20 H Creatinine 1.4 H Creat Clearance w eGFR 48.40 POC Glucometer Random Glucose 517 H* Calcium 6.8 L* Total Bilirubin 0.4 AST 15 ALT 23 Alkaline Phosphatase 113 Creatine Kinase 156 Creatine Kinase Index 1.0 CK-MB (CK-2) 1.6 Troponin I 0.05 Total Protein 5.8 L Albumin 3.1 L Triglycerides 115 Cholesterol 142 Total LDL Cholesterol 73 HDL Cholesterol 55 Urine Color Urine Appearance Urine pH Ur Specific [place] Urine Protein Urine Glucose (UA) Urine Ketones Urine Blood Urine Nitrite Urine Bilirubin Urine Urobilinogen Ur Leukocyte Esterase Urine WBC (Auto) Urine RBC (Auto) Ur Epithelial Cells Acetone, Qual Blood Type Antibody Screen 09/24/18 09/24/18 09/24/18 01:33 01:33 01:45 WBC RBC Hgb Hct MCV MCH MCHC RDW Plt Count MPV Absolute Neuts (auto) Neutrophils % Lymphocytes % Monocytes % Eosinophils % Basophils % Nucleated RBC % PT with INR INR Sodium Potassium Chloride Carbon Dioxide Anion Gap BUN Creatinine Creat Clearance w eGFR POC Glucometer Random Glucose Calcium Total Bilirubin AST ALT Alkaline Phosphatase Creatine Kinase Creatine Kinase Index CK-MB (CK-2) Troponin I Total Protein Albumin Triglycerides Cholesterol Total LDL Cholesterol HDL Cholesterol Urine Color Straw Urine Appearance Clear Urine pH 6.0 Ur Specific [place] 1.042 H Urine Protein Negative Urine Glucose (UA) 3+ H Urine Ketones Negative Urine Blood 1+ H Urine Nitrite Negative Urine Bilirubin Negative Urine Urobilinogen Negative Ur Leukocyte Esterase Negative Urine WBC (Auto) 1 Urine RBC (Auto) 1 Ur Epithelial Cells Rare Acetone, Qual Trace Blood Type O POSITIVE Antibody Screen Negative 09/24/18 05:26 WBC RBC Hgb Hct MCV MCH MCHC RDW Plt Count MPV Absolute Neuts (auto) Neutrophils % Lymphocytes % Monocytes % Eosinophils % Basophils % Nucleated RBC % PT with INR INR Sodium Potassium Chloride Carbon Dioxide Anion Gap BUN Creatinine Creat Clearance w eGFR POC Glucometer 485 Random Glucose Calcium Total Bilirubin AST ALT Alkaline Phosphatase Creatine Kinase Creatine Kinase Index CK-MB (CK-2) Troponin I Total Protein Albumin Triglycerides Cholesterol Total LDL Cholesterol HDL Cholesterol Urine Color Urine Appearance Urine pH Ur Specific [place] Urine Protein Urine Glucose (UA) Urine Ketones Urine Blood Urine Nitrite Urine Bilirubin Urine Urobilinogen Ur Leukocyte Esterase Urine WBC (Auto) Urine RBC (Auto) Ur Epithelial Cells Acetone, Qual Blood Type Antibody Screen Active Medications Generic Name Dose Route Start Last Admin Trade Name Patricia PRN Reason Stop Dose Admin Sodium Chloride 1,000 mls @ 42 mls/hr 09/24/18 00:30 09/24/18 01:27 Normal Saline - IV 42 mls/hr ASDIR NESSA Administration Sodium Chloride 1,134 mls @ 567 mls/hr 09/24/18 05:09 Normal Saline - 10 ml/kg infuse over 2 hr (1134 ml) 09/24/18 07:08 IV ONCE ONE Potassium Chloride 10 meq in 100 mls @ 100 mls/hr 09/24/18 05:15 Potassium Chloride 10 Meq Premix Ivpb - IVPB 09/24/18 08:14 Q60M NESSA ASSESSMENT/PLAN: 83 yo M with a hx of HTN, HLD, CHF, COPD, CVA (2016 without residual deficits), not on anticoagulation presented initially to the emergency department with left sided facial droop, LUE, and LLE weakness with improvement in symptoms during course in ED stay that was subsequently found to be hyperglycemia and hypokalemic. Neuro: AMS 2/2 HHS vs CVA/TIA vs infectious etiology vs exogenous substance use. CVA hx 2015 (without residual deficits) Head CT negative for acute intracranial process Per nursing staff, patient refused Aspirin 81 mg and pulled out one of his lines Residual left sided weakness with possible neglect -Repeat head CT in 24 hours from initial -Neurology consulted by ED -Neuro checks q1hr -Monitor for mental status changes -Telemetry monitoring -f/u alcohol, urine tox levels CV: Hx of HTN, CHF (unknown records, first time visit to our ED, PMD is Dr. David Rico) -Echo -Tele monitoring -aspirin 81 mg -f/u cxr Respiratory: Hx of COPD with no acute issues during this visit -Continue to monitor respiratory status -Maintain SpO2 between 90-92% -Pending CXR ID: Patient's temperature was 101.2 F and tachycardia Pending CXR WBC within normal limits Lactic acid pending Blood cultures pending -Consider abx after cultures -Repeat and trend temperature Endo: Per the SO, patient has "borderline diabetes" without need for medications. In the ED, patient's BG was 517 without increased AG or low bicarb. Potassium at 3.3 and Sodium at 134. Serum osm 304 calculated Suspected patient has hyperglycemia vs HHS. Unlikely to have DKA Corrected calcium 7.5 -Continue to monitor BGM q1hr -BMP q2-3 hrs -Aggressive fluid hydration; NS with potassium; currently at 150 mls/hr -Once potassium corrects to 4-5, can treat with insulin bolus vs drip -Follow ABG -ICU monitoring -Replete calcium GI: Patient had N/V NBNB event after CT was done N/V likely secondary to HHS vs hyperglycemia No hx of GI related pathologies Currently not vomiting -Continue fluid resuscitation -Supportive care Renal: BUN/Cr is 20/1.4 Likely PATRICK secondary to dehydration 2/2 hyperglycemia and emesis event Receiving IVF -Continue to monitor renal function Heme/onc WBC within normal limits. Not anemic -Continue to monitor with CBC FEN: NPO NS with KCl -Monitor electrolytes and replete when necessary -Pending magnesium and phosphorus Prophylaxis: dvt prophylaxis GI prophylaxis Dispo: We will continue to follow the patient. Thank you for this consultative opportunity. Visit type - Emergency Visit Emergency Visit: Yes ED Registration Date: 09/24/18 Care time: The patient presented to the Emergency Department on the above date and was hospitalized for further evaluation of their emergent condition. - New Patient This patient is new to me today: Yes Date on this admission: 09/24/18 - Critical Care Critical Care patient: Yes Total Critical Care Time (in minutes): 36 Critical Care Statement: The care of this patient involved high complexity decision making to prevent further life threatening deterioration of the patient 's condition and/or to evaluate & treat vital organ system(s) failure or risk of failure.
[2018-09-24] MEDS ORDERED: SODIUM CHLORIDE 0.9%/KCL 20 MEQ/1,000 ML INFUS.BAG IV SCH (05:45)
[2018-09-24] MEDS ORDERED: ACETAMINOPHEN INJECTION 100 ML IVPB ONE (05:45)
[2018-09-24] MEDS ORDERED: SODIUM CHLORIDE KCL IV SCH (05:45)
[2018-09-24] MEDS ORDERED: HEPARIN NA (PORCINE) 5,000 UNITS/ML 1ML VIAL ONE (06:14)
[2018-09-24] MEDS: HEPARIN NA (PORCINE) 5,000 UNITS/ML 1ML VIAL SQ SCH ×3 (06:18→23:27)
[2018-09-24] MEDS ORDERED: CALCIUM (OYSTER SHELL) 500 MG TABLET (FP) PO ONE (06:20)
[2018-09-24] MEDS ORDERED: KCL 10 MEQ IVPB 20 MEQ/200 ML INFUS.BAG IVPB ONE (07:27)
[2018-09-24 07:52] LABS: ARTERIAL BLD GAS O2 SATURATION 97.9 % (90-98.9); ARTERIAL BLOOD GAS BASE EXCESS -0.5 meq/l (-2-2); ARTERIAL BLOOD GAS PCO2 32.3 mmHg (35-45); ARTERIAL BLOOD GAS pH 7.45 (7.35-7.45)
[2018-09-24 07:54] LABS: ALLENS TEST POSITIVE
[2018-09-24 08:55] LABS: COCAINE, UR NEGATIVE ng/ml (CUTOFF=300); METHADONE, UR NEGATIVE ng/ml (CUTOFF=300); OPIATES, URI NEGATIVE ng/ml (CUTOFF=300); PHENCYCLIDINE,URINE NEGATIVE ng/ml (CUTOFF=25); URINE AMPHETAMINES NEGATIVE ng/ml (CUTOFF=500); URINE BARBITURATES NEGATIVE ng/ml (CUTOFF=200); URINE BENZODIAZEPINES NEGATIVE ng/ml (CUTOFF=200)
[2018-09-24] MEDS: SODIUM CHLORIDE 0.9%/KCL 20 MEQ/1,000 ML INFUS.BAG IV SCH ×3 (09:00→23:27)
[2018-09-24 09:29] LABS: HEMATOCRIT 37.3 % (35.4-49); HEMOGLOBIN 12.5 GM/dL (11.7-16.9); MCH 30.1 pg (25.7-33.7); MCHC 33.6 g/dl (32.0-35.9); MEAN CELL VOLUME 89.6 fl (80-96); MEAN PLT VOLUME 10.1 fl (7.5-11.1); PLATELET COUNT 161 K/MM3 (134-434); RBC 4.16 M/mm3 (4.00-5.60); WHITE BLOOD COUNT 9.2 K/mm3 (4.0-10.0)
--- NOTE | 2018-09-24 09:47 | PN ---
Teaching Attending Note Name of Resident: Yimi Lemus ATTENDING PHYSICIAN STATEMENT I saw and evaluated the patient. I reviewed the resident's note and discussed the case with the resident. I agree with the resident's findings and plan as documented. 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 Admitted after his significant other found him confused and possible left facial droop. She was not able to understand his speech. He was apparently at a concert and was noted to be limping on his way to the car. The events took place initially around 9PM. In ER CT head was negative for an acute process. He is now seen in the ICU. He is awake. He is oriented to person, place, and date. He denies CP or SOB. No WOODWARD or BOV. Noted to be hyperglycemic on lab analysis. Intake & Output 09/21/18 09/22/18 09/23/18 09/24/18 23:59 23:59 23:59 23:59 Intake Total 100 Output Total 200 Balance -100 Weight 250 lb Last Vital Signs Temp Pulse Resp BP Pulse Ox 100.1 F H 62 17 135/75 100 09/24/18 09:00 09/24/18 09:00 09/24/18 09:00 09/24/18 09:00 09/24/18 08:12 Active Medications Chlorhexidine Gluconate (Hibiclens For Decolonization -) 1 applic TP HS [facility] Heparin Sodium (Porcine) (Heparin -) 5,000 unit SQ TID [facility] Last Admin: 09/24/18 06:18 Dose: 5,000 unit Potassium Chloride (Potassium Chloride 10 Meq Premix Ivpb -) 10 meq in 100 mls @ 100 mls/hr IVPB Q60M [facility] Stop: 09/24/18 11:44 Potassium Chloride/Sodium Chloride (Ns+20 Meq Kcl -) 20 meq in 1,000 mls @ 100 mls/hr IV ASDIR NESSA Insulin Aspart (Novolog Vial Sliding Scale -) 1 vial SQ ACHS [facility]; Protocol Mupirocin (Bactroban Ointment (For Decolonization) -) 1 applic NS BID [facility] Stop: 09/29/18 09:59 Pantoprazole Sodium (Protonix Iv) 40 mg IVPUSH DAILY [facility] Thiamine HCl (Vitamin B1 Injection -) 200 mg IVPB BID [facility] REVIEW OF SYSTEMS: CONSTITUTIONAL: generalized weakness Absent: fever, chills, diaphoresis, malaise, loss of appetite, weight change HEENT: Absent: rhinorrhea, nasal congestion, throat pain, throat swelling, difficulty swallowing, mouth swelling, ear pain, eye pain, visual changes CARDIOVASCULAR: Absent: chest pain, syncope, palpitations, irregular heart rate, lightheadedness , peripheral edema RESPIRATORY: Absent: cough, shortness of breath, dyspnea with exertion, orthopnea, wheezing, stridor, hemoptysis GASTROINTESTINAL: Absent: abdominal pain, abdominal distension, nausea, vomiting, diarrhea, constipation, melena, hematochezia GENITOURINARY: Absent: dysuria, frequency, urgency, hesitancy, hematuria, flank pain, genital pain MUSCULOSKELETAL: Absent: myalgia, arthralgia, joint swelling, back pain, neck pain SKIN: Absent: rash, itching, pallor HEMATOLOGIC/IMMUNOLOGIC: Absent: easy bleeding, easy bruising, lymphadenopathy, frequent infections ENDOCRINE: Absent: unexplained weight gain, unexplained weight loss, heat intolerance, cold intolerance NEUROLOGIC: Absent: headache, focal weakness or paresthesias, dizziness, unsteady gait, seizure, mental status changes, bladder or bowel incontinence PSYCHIATRIC: Absent: anxiety, depression, suicidal or homicidal ideation, hallucinations. PHYSICAL EXAMINATION GENERAL: Awake, alert, and oriented to name, place, and date HEAD: Normal with no signs of trauma. EYES: Pupils equal, round and reactive to light, extraocular movements intact, sclera anicteric, conjunctiva clear. No lid lag. EARS, NOSE, THROAT: Ears normal, nares patent, oropharynx clear without exudates. Moist mucous membranes. NECK: Normal range of motion, supple without lymphadenopathy, JVD, or masses. LUNGS: Breath sounds equal, clear to auscultation bilaterally. No wheezes, and no crackles. No accessory muscle use. HEART: Regular rate and rhythm, normal S1 and S2 without murmur, rub or gallop. ABDOMEN: Soft, nontender, not distended, normoactive bowel sounds, no guarding, no rebound, no masses. No hepatomegaly or splenomegaly. MUSCULOSKELETAL: Normal range of motion at all joints. No bony deformities or tenderness. No CVA tenderness. UPPER EXTREMITIES: 2+ pulses, warm, well-perfused. No cyanosis. No clubbing. Cap refill <2 seconds. No peripheral edema. LOWER EXTREMITIES: 2+ pulses, warm, well-perfused. No calf tenderness. No peripheral edema. NEUROLOGICAL: Slight left facial droop, motor intact PSYCHIATRIC: appropriate SKIN: Warm, dry, normal turgor, no rashes or lesions noted. Laboratory Results - last 24 hr 09/24/18 09/24/18 09/24/18 01:33 01:33 01:33 WBC 4.9 RBC 4.09 Hgb 12.6 Hct 37.2 MCV 91.0 MCH 30.7 MCHC 33.7 RDW 13.5 Plt Count 154 MPV 9.4 Absolute Neuts (auto) 3.6 Neutrophils % 74.6 Lymphocytes % 15.5 Monocytes % 7.4 Eosinophils % 2.0 Basophils % 0.5 Nucleated RBC % 0 PT with INR 13.40 H INR 1.13 H Sodium 134 L Potassium 3.3 L Chloride 101 Carbon Dioxide 24 Anion Gap 9 BUN 20 H Creatinine 1.4 H Creat Clearance w eGFR 48.40 POC Glucometer Random Glucose 517 H* Calcium 6.8 L* Total Bilirubin 0.4 AST 15 ALT 23 Alkaline Phosphatase 113 Creatine Kinase 156 Creatine Kinase Index 1.0 CK-MB (CK-2) 1.6 Troponin I 0.05 Total Protein 5.8 L Albumin 3.1 L Triglycerides 115 Cholesterol 142 Total LDL Cholesterol 73 HDL Cholesterol 55 Urine Color Urine Appearance Urine pH Ur Specific [place] Urine Protein Urine Glucose (UA) Urine Ketones Urine Blood Urine Nitrite Urine Bilirubin Urine Urobilinogen Ur Leukocyte Esterase Urine WBC (Auto) Urine RBC (Auto) Ur Epithelial Cells Acetone, Qual Blood Type Antibody Screen 09/24/18 09/24/18 09/24/18 01:33 01:33 01:45 WBC RBC Hgb Hct MCV MCH MCHC RDW Plt Count MPV Absolute Neuts (auto) Neutrophils % Lymphocytes % Monocytes % Eosinophils % Basophils % Nucleated RBC % PT with INR INR Sodium Potassium Chloride Carbon Dioxide Anion Gap BUN Creatinine Creat Clearance w eGFR POC Glucometer Random Glucose Calcium Total Bilirubin AST ALT Alkaline Phosphatase Creatine Kinase Creatine Kinase Index CK-MB (CK-2) Troponin I Total Protein Albumin Triglycerides Cholesterol Total LDL Cholesterol HDL Cholesterol Urine Color Straw Urine Appearance Clear Urine pH 6.0 Ur Specific [place] 1.042 H Urine Protein Negative Urine Glucose (UA) 3+ H Urine Ketones Negative Urine Blood 1+ H Urine Nitrite Negative Urine Bilirubin Negative Urine Urobilinogen Negative Ur Leukocyte Esterase Negative Urine WBC (Auto) 1 Urine RBC (Auto) 1 Ur Epithelial Cells Rare Acetone, Qual Trace Blood Type O POSITIVE Antibody Screen Negative 09/24/18 05:26 WBC RBC Hgb Hct MCV MCH MCHC RDW Plt Count MPV Absolute Neuts (auto) Neutrophils % Lymphocytes % Monocytes % Eosinophils % Basophils % Nucleated RBC % PT with INR INR Sodium Potassium Chloride Carbon Dioxide Anion Gap BUN Creatinine Creat Clearance w eGFR POC Glucometer 485 Random Glucose Calcium Total Bilirubin AST ALT Alkaline Phosphatase Creatine Kinase Creatine Kinase Index CK-MB (CK-2) Troponin I Total Protein Albumin Triglycerides Cholesterol Total LDL Cholesterol HDL Cholesterol Urine Color Urine Appearance Urine pH Ur Specific [place] Urine Protein Urine Glucose (UA) Urine Ketones Urine Blood Urine Nitrite Urine Bilirubin Urine Urobilinogen Ur Leukocyte Esterase Urine WBC (Auto) Urine RBC (Auto) Ur Epithelial Cells Acetone, Qual Blood Type Antibody Screen ASSESSMENT/PLAN: Hyperglycemia: not DKA or Hyperosmolar state R/O CVA: beyond window for lytic therapy Probable Viral illness as the etiology of fever. No clear source of infection is noted. HTN HLD CHF COPD CVA (2016 without residual deficits) (?) Substance induced confusion R/O PATRICK ASA Neuro workup IVF Strict I & O Repeat CT Head Statin O2 as needed OOB to chair Follow cultures PT VTE prophylaxis Stroke unit monitoring Dr Robert
[2018-09-24 09:56] LABS: ALBUMIN 3.6 g/dl (3.4-5.0); ALK PHOS 110 U/L (45-117); ANION GAP 11 MMOL/L (8-16); BILIRUBIN,TOTAL 0.9 mg/dL (0.2-1); BLOOD UREA NITROGEN 20 mg/dL (7-18); CALCIUM 8.6 mg/dL (8.5-10.1); CHLORIDE 100 mmol/L (98-107); CO2 25 mmol/L (21-32); CREATININE 1.5 mg/dL (0.55-1.3); MAGNESIUM 2.2 mg/dL (1.8-2.4); PHOSPHOROUS 3.8 mg/dL (2.5-4.9); SGOT/AST 17 U/L (15-37); SGPT/ALT 23 U/L (13-61); SODIUM 136 mmol/L (136-145); TOT PROT 6.5 g/dl (6.4-8.2)
[2018-09-24] MEDS ORDERED: THIAMINE HCL 200 MG/2 ML VIAL IVPB SCH (10:00)
[2018-09-24] MEDS ORDERED: MUPIROCIN 2% TOPICAL OINTMENT FOR DECOLONIZATION NS SCH (10:00)
[2018-09-24] MEDS ORDERED: PANTOPRAZOLE SODIUM 40 MG VIAL IVPUSH SCH (10:00)
--- NOTE | 2018-09-24 10:05 | PN ---
Physical Exam: SUBJECTIVE: 83yo Left-handed M with history of CVA (2016; without residual deficits), CHF , COPD, HTN, HLD, and gout who presented last night with altered status, L facial droop, and L-sided weakness. Pt is currently oriented, however does not remember events. Pt's fiance provides gaps in medical history at this time. Pt around 20:30h 09/23/18 was at a concert sponsored by [employer] when he developed some L limping noted by his fiance. Both the pt and family did not think anything of this, however later that night pt's fiance was awoken to find pt altered with one shoe on, trying to fill a glass of water however he could not do so. Pt did not realize he had shoes on at all and he was noted to have L head tilt throughout this episode. EMS was called at this point and pt was sent to our ED for further evaluation. Of note in pt's labs, he was found to be hyperglycemic to 500's and hypokalemic to 3.3. Currently, pt does not have complaints, however he has amnesia to all of these events. Pt denies any current headaches, blurry vision, lightheadedness, shortness of breath, CP/discomfort, abdominal pain, dysuria, polyuria, fever/ chills, n/v/diarrhea/constipation. Pt denies any tingling/parasthesias at the present time. OBJECTIVE: Vital Signs Period Temp Pulse Resp BP Sys/Rick Pulse Ox Last 24 Hr 98.1 F-101.2 F 62-115 17-20 115-167/75-104 95-100 GENERAL: NAD, awake, alert, and fully oriented with questionable clouded sensorium HEENT: NC/AT, EOMI, peripheral vision intact, DESEAN, sclera anicteric, MMM NECK: No JVD LUNGS: CTA bilaterally, no wheezes, no crackles, no accessory muscle use. HEART: RRR, S1, S2 without murmur ABDOMEN: Soft, NT/ND, normoactive BS, no guarding, no hepatomegaly. EXTREMITIES: 2+ pulses, warm, well-perfused, no peripheral edema, no calf tenderness. NEUROLOGICAL: L facial droop noted with smiling, CN II-; CN VIII-XII intact. L handgrip 4/5 compared to R handgrip B/L finger abduction/adduction 5/5 Lower extremity dewey 5/5 in strength Sensation intact in all sensory regions including subdivisions of CN V No dysmetria; no dysdiadocokinesia PSYCH: Normal mood, normal affect. SKIN: Warm, dry, no rashes or lesions noted Laboratory Results - last 24 hr 09/24/18 09/24/18 08:05 08:55 WBC 9.2 RBC 4.16 Hgb 12.5 Hct 37.3 MCV 89.6 MCH 30.1 MCHC 33.6 RDW 14.0 Plt Count 161 MPV 10.1 Absolute Neuts (auto) Neutrophils % Lymphocytes % Monocytes % Eosinophils % Basophils % Nucleated RBC % PT with INR INR Anticoagulation Therapy Puncture Site ABG pH ABG pCO2 at Pt Temp ABG pO2 at Pt Temp ABG HCO3 ABG O2 Sat (Measured) ABG O2 Content ABG Base Excess Sammy Test O2 Delivery Device Oxygen Flow Rate Vent Mode Vent Rate Mechanical Rate Pressure Support Vent Sodium Potassium Chloride Carbon Dioxide Anion Gap BUN Creatinine Creat Clearance w eGFR POC Glucometer Random Glucose Calcium Phosphorus Magnesium Total Bilirubin AST ALT Alkaline Phosphatase Creatine Kinase Creatine Kinase Index CK-MB (CK-2) Troponin I Total Protein Albumin Triglycerides Cholesterol Total LDL Cholesterol HDL Cholesterol Urine Color Urine Appearance Urine pH Ur Specific [place] Urine Protein Urine Glucose (UA) Urine Ketones Urine Blood Urine Nitrite Urine Bilirubin Urine Urobilinogen Ur Leukocyte Esterase Urine WBC (Auto) Urine RBC (Auto) Ur Epithelial Cells Opiates Screen Negative Methadone Screen Negative Barbiturate Screen Negative Phencyclidine Screen Negative Ur Amphetamines Screen Negative MDMA (Ecstasy) Screen Negative Benzodiazepines Screen Negative Cocaine Screen Negative U Marijuana (THC) Screen Negative Alcohol, Quantitative <3.0 Acetone, Qual Blood Type Antibody Screen 09/24/18 08:55 WBC RBC Hgb Hct MCV MCH MCHC RDW Plt Count MPV Absolute Neuts (auto) Neutrophils % Lymphocytes % Monocytes % Eosinophils % Basophils % Nucleated RBC % PT with INR INR Anticoagulation Therapy Puncture Site ABG pH ABG pCO2 at Pt Temp ABG pO2 at Pt Temp ABG HCO3 ABG O2 Sat (Measured) ABG O2 Content ABG Base Excess Sammy Test O2 Delivery Device Oxygen Flow Rate Vent Mode Vent Rate Mechanical Rate Pressure Support Vent Sodium 136 Potassium 4.0 Chloride 100 Carbon Dioxide 25 Anion Gap 11 BUN 20 H Creatinine 1.5 H Creat Clearance w eGFR 44.69 POC Glucometer Random Glucose Calcium 8.6 Phosphorus 3.8 Magnesium 2.2 Total Bilirubin 0.9 AST 17 ALT 23 Alkaline Phosphatase 110 Creatine Kinase Creatine Kinase Index CK-MB (CK-2) Troponin I Total Protein 6.5 Albumin 3.6 Triglycerides Cholesterol Total LDL Cholesterol HDL Cholesterol Urine Color Urine Appearance Urine pH Ur Specific [place] Urine Protein Urine Glucose (UA) Urine Ketones Urine Blood Urine Nitrite Urine Bilirubin Urine Urobilinogen Ur Leukocyte Esterase Urine WBC (Auto) Urine RBC (Auto) Ur Epithelial Cells Opiates Screen Methadone Screen Barbiturate Screen Phencyclidine Screen Ur Amphetamines Screen MDMA (Ecstasy) Screen Benzodiazepines Screen Cocaine Screen U Marijuana (THC) Screen Alcohol, Quantitative Acetone, Qual Blood Type Antibody Screen Active Medications Generic Name Dose Route Start Last Admin Trade Name Vinq PRN Reason Stop Dose Admin Aspirin 162 mg 09/24/18 09:52 Asa - PO 09/24/18 09:53 ONCE ONE Aspirin 81 mg 09/25/18 10:00 Ecotrin - PO DAILY [facility] Chlorhexidine Gluconate 1 applic 09/24/18 22:00 Hibiclens For Decolonization - TP HS [facility] Heparin Sodium (Porcine) 5,000 unit 09/24/18 06:00 09/24/18 06:18 Heparin - SQ 5,000 unit TID [facility] Administration Potassium Chloride 10 meq in 100 mls @ 100 mls/hr 09/24/18 08:45 Potassium Chloride 10 Meq Premix Ivpb - IVPB 09/24/18 11:44 Q60M N[facility] Potassium Chloride/Sodium Chloride 20 meq in 1,000 mls @ 100 mls/hr 09/24/18 08:37 Ns+20 Meq Kcl - IV ASDIR [facility] Insulin Aspart 1 vial 09/24/18 11:00 Novolog Vial Sliding Scale - SQ ACHS [facility] Protocol Mupirocin 1 applic 09/24/18 10:00 Bactroban Ointment (For Decolonization) - NS 09/29/18 09:59 BID [facility] Pantoprazole Sodium 40 mg 09/24/18 10:00 Protonix Iv IVPUSH DAILY [facility] Thiamine HCl 200 mg 09/24/18 10:00 Vitamin B1 Injection - IVPB BID [facility] ASSESSMENT/PLAN: Neuro: Suspected CVA --Neuro consulted --ASA 162mg PO NOW; continue 81mg Daily thereafter --Head CT negative for acute pathology --MRI/MRA ordered --Carotid US ordered --Echocardiogram ordered --Speech and swallow consult; can perform bedside swallow examination --Physical therapy consult --Pt already on Lipitor 80mg HS; can continue if bedside swallow exam okay --Lipid panel for tomorrow AM Respiratory: Not in acute distress Hx of COPD --Can continue Trelegy-Elipta home dose Cardiovascular: HTN --Currently controlled --Monitor BP --Home medications: Benicar 40-12.5mg PO qDaily, Bystolic, CAD history --Home medications: Plavix 75mg qDaily, ASA 325mg qDaily Endocrine: Hyperglycemia --ISS ACHS --BGM ACHS --Hemoglobin A1c to be added on to morning labs ID: ? Febrile illness --Fever noted on admission; 100.1 this AM with WBC WNL --BCx and UCx pending currently --Pt's fiance notes pt was complaining of polyuria prior --CXR ordered for assessment of pneumonitis vs. CAPna --Monitor fever curve; will withhold from any antipyretics at this point --Will observe off antibiotics as there is no clear source Rheum: History of Gout: --Home medication: Allopurinal 200mg FEN: Fluids: If PO tolerated can encourage PO water intake; if not then NS@100cc/ hr Electrolyte abnormalities: Hypokalemia (now resolved after repletion) Nutrition: NPO until bedside swallow/S&S PPX: DVT - Heparin TID SQ GI - Not indicated currently Dispo: Transfer to stroke telemetry; order is in GOC: Full code Case discussed with ICU team and Dr. Antonio Victoria, DO - IM PGY-2 Visit type - Emergency Visit Emergency Visit: Yes ED Registration Date: 09/24/18 Care time: The patient presented to the Emergency Department on the above date and was hospitalized for further evaluation of their emergent condition. - New Patient This patient is new to me today: Yes Date on this admission: 09/24/18 - Critical Care Critical Care patient: No - Discharge Referral Referred to [facility] No
[2018-09-24 10:12] LABS: GLUCOSE,RANDOM 400 mg/dL (74-106)
[2018-09-24] MEDS ORDERED: INSULIN SLIDING SCALE (NOVOLOG) 1 VIAL SQ SCH (11:00)
[2018-09-24] MEDS: INSULIN SLIDING SCALE (NOVOLOG) 1 VIAL SQ SCH ×3 (12:00→23:47)
[2018-09-24 12:52] LABS: ANION GAP 9 MMOL/L (8-16); BLOOD UREA NITROGEN 18 mg/dL (7-18); CALCIUM 8.2 mg/dL (8.5-10.1); CHLORIDE 102 mmol/L (98-107); CO2 28 mmol/L (21-32); CREATININE 1.6 mg/dL (0.55-1.3); SODIUM 138 mmol/L (136-145)
[2018-09-24 13:26] LABS: GLUCOSE,RANDOM 359 mg/dL (74-106)
--- NOTE | 2018-09-24 14:00 | PN ---
Teaching Attending Note Name of Resident: Jevon Victoria ATTENDING PHYSICIAN STATEMENT I saw and evaluated the patient. I reviewed the resident's note and discussed the case with the resident. I agree with the resident's findings and plan as documented. SUBJECTIVE: Feels well - no complaints. No fever/chills/cough/sputum/headache. No slurring of speech. No visual disturbance. OBJECTIVE: Hemodynamically Stable. Tmax 101.2 Last Vital Signs Temp Pulse Resp BP Pulse Ox 99.0 F 56 L 17 142/71 100 09/24/18 11:17 09/24/18 12:30 09/24/18 12:30 09/24/18 12:30 09/24/18 11:00 HEENT - Atraumatic, Normocephalic, L partial facial droop Heart - S1, S2, RRR Lungs - clear to auscultation Abdomen - Soft, non-tender. Bowel Sounds normal. Extremities- no edema, no calf tenderness Neuro - AAO x 3. Decreased L hand-venue attendant strength. L partial facial droop. Laboratory Results - last 24 hr 09/24/18 09/24/18 09/24/18 01:33 01:33 01:33 WBC 4.9 RBC 4.09 Hgb 12.6 Hct 37.2 MCV 91.0 MCH 30.7 MCHC 33.7 RDW 13.5 Plt Count 154 MPV 9.4 Absolute Neuts (auto) 3.6 Neutrophils % 74.6 Lymphocytes % 15.5 Monocytes % 7.4 Eosinophils % 2.0 Basophils % 0.5 Nucleated RBC % 0 PT with INR 13.40 H INR 1.13 H Anticoagulation Therapy Puncture Site ABG pH ABG pCO2 at Pt Temp ABG pO2 at Pt Temp ABG HCO3 ABG O2 Sat (Measured) ABG O2 Content ABG Base Excess Sammy Test O2 Delivery Device Oxygen Flow Rate Vent Mode Vent Rate Mechanical Rate Pressure Support Vent Sodium 134 L Potassium 3.3 L Chloride 101 Carbon Dioxide 24 Anion Gap 9 BUN 20 H Creatinine 1.4 H Creat Clearance w eGFR 48.40 POC Glucometer Random Glucose 517 H* Calcium 6.8 L* Phosphorus Magnesium Total Bilirubin 0.4 AST 15 ALT 23 Alkaline Phosphatase 113 Creatine Kinase 156 Creatine Kinase Index 1.0 CK-MB (CK-2) 1.6 Troponin I 0.05 Total Protein 5.8 L Albumin 3.1 L Triglycerides 115 Cholesterol 142 Total LDL Cholesterol 73 HDL Cholesterol 55 Urine Color Urine Appearance Urine pH Ur Specific [place] Urine Protein Urine Glucose (UA) Urine Ketones Urine Blood Urine Nitrite Urine Bilirubin Urine Urobilinogen Ur Leukocyte Esterase Urine WBC (Auto) Urine RBC (Auto) Ur Epithelial Cells Opiates Screen Methadone Screen Barbiturate Screen Phencyclidine Screen Ur Amphetamines Screen MDMA (Ecstasy) Screen Benzodiazepines Screen Cocaine Screen U Marijuana (THC) Screen Alcohol, Quantitative Acetone, Qual Blood Type Antibody Screen 09/24/18 09/24/18 09/24/18 01:33 01:33 01:33 WBC RBC Hgb Hct MCV MCH MCHC RDW Plt Count MPV Absolute Neuts (auto) Neutrophils % Lymphocytes % Monocytes % Eosinophils % Basophils % Nucleated RBC % PT with INR INR Anticoagulation Therapy Puncture Site ABG pH ABG pCO2 at Pt Temp ABG pO2 at Pt Temp ABG HCO3 ABG O2 Sat (Measured) ABG O2 Content ABG Base Excess Sammy Test O2 Delivery Device Oxygen Flow Rate Vent Mode Vent Rate Mechanical Rate Pressure Support Vent Sodium Potassium Chloride Carbon Dioxide Anion Gap BUN Creatinine Creat Clearance w eGFR POC Glucometer Random Glucose Calcium Phosphorus Magnesium Total Bilirubin AST ALT Alkaline Phosphatase Creatine Kinase Creatine Kinase Index 1.3 CK-MB (CK-2) 4.2 H Troponin I Total Protein Albumin Triglycerides Cholesterol Total LDL Cholesterol HDL Cholesterol Urine Color Urine Appearance Urine pH Ur Specific [place] Urine Protein Urine Glucose (UA) Urine Ketones Urine Blood Urine Nitrite Urine Bilirubin Urine Urobilinogen Ur Leukocyte Esterase Urine WBC (Auto) Urine RBC (Auto) Ur Epithelial Cells Opiates Screen Methadone Screen Barbiturate Screen Phencyclidine Screen Ur Amphetamines Screen MDMA (Ecstasy) Screen Benzodiazepines Screen Cocaine Screen U Marijuana (THC) Screen Alcohol, Quantitative Acetone, Qual Trace Blood Type O POSITIVE Antibody Screen Negative 09/24/18 09/24/18 09/24/18 01:45 05:26 07:45 WBC RBC Hgb Hct MCV MCH MCHC RDW Plt Count MPV Absolute Neuts (auto) Neutrophils % Lymphocytes % Monocytes % Eosinophils % Basophils % Nucleated RBC % PT with INR INR Anticoagulation Therapy No Result Required. Puncture Site Right radial ABG pH 7.45 ABG pCO2 at Pt Temp 32.3 L ABG pO2 at Pt Temp 105.0 H ABG HCO3 22.3 ABG O2 Sat (Measured) 97.9 ABG O2 Content 17.2 ABG Base Excess -0.5 Sammy Test Positive O2 Delivery Device Nasal Oxygen Flow Rate Yes Vent Mode No Result Required. Vent Rate No Result Required. Mechanical Rate No Result Required. Pressure Support Vent No Result Required. Sodium Potassium Chloride Carbon Dioxide Anion Gap BUN Creatinine Creat Clearance w eGFR POC Glucometer 485 Random Glucose Calcium Phosphorus Magnesium Total Bilirubin AST ALT Alkaline Phosphatase Creatine Kinase Creatine Kinase Index CK-MB (CK-2) Troponin I Total Protein Albumin Triglycerides Cholesterol Total LDL Cholesterol HDL Cholesterol Urine Color Straw Urine Appearance Clear Urine pH 6.0 Ur Specific [place] 1.042 H Urine Protein Negative Urine Glucose (UA) 3+ H Urine Ketones Negative Urine Blood 1+ H Urine Nitrite Negative Urine Bilirubin Negative Urine Urobilinogen Negative Ur Leukocyte Esterase Negative Urine WBC (Auto) 1 Urine RBC (Auto) 1 Ur Epithelial Cells Rare Opiates Screen Methadone Screen Barbiturate Screen Phencyclidine Screen Ur Amphetamines Screen MDMA (Ecstasy) Screen Benzodiazepines Screen Cocaine Screen U Marijuana (THC) Screen Alcohol, Quantitative Acetone, Qual Blood Type Antibody Screen 09/24/18 09/24/18 09/24/18 08:05 08:55 08:55 WBC 9.2 RBC 4.16 Hgb 12.5 Hct 37.3 MCV 89.6 MCH 30.1 MCHC 33.6 RDW 14.0 Plt Count 161 MPV 10.1 Absolute Neuts (auto) Neutrophils % Lymphocytes % Monocytes % Eosinophils % Basophils % Nucleated RBC % PT with INR INR Anticoagulation Therapy Puncture Site ABG pH ABG pCO2 at Pt Temp ABG pO2 at Pt Temp ABG HCO3 ABG O2 Sat (Measured) ABG O2 Content ABG Base Excess Sammy Test O2 Delivery Device Oxygen Flow Rate Vent Mode Vent Rate Mechanical Rate Pressure Support Vent Sodium Potassium Chloride Carbon Dioxide Anion Gap BUN Creatinine Creat Clearance w eGFR POC Glucometer Random Glucose Calcium Phosphorus Magnesium Total Bilirubin AST ALT Alkaline Phosphatase Creatine Kinase Creatine Kinase Index CK-MB (CK-2) Troponin I Total Protein Albumin Triglycerides Cholesterol Total LDL Cholesterol HDL Cholesterol Urine Color Urine Appearance Urine pH Ur Specific [place] Urine Protein Urine Glucose (UA) Urine Ketones Urine Blood Urine Nitrite Urine Bilirubin Urine Urobilinogen Ur Leukocyte Esterase Urine WBC (Auto) Urine RBC (Auto) Ur Epithelial Cells Opiates Screen Negative Methadone Screen Negative Barbiturate Screen Negative Phencyclidine Screen Negative Ur Amphetamines Screen Negative MDMA (Ecstasy) Screen Negative Benzodiazepines Screen Negative Cocaine Screen Negative U Marijuana (THC) Screen Negative Alcohol, Quantitative < 3.0 Acetone, Qual Blood Type Antibody Screen 09/24/18 09/24/18 09/24/18 08:55 11:47 12:05 WBC RBC Hgb Hct MCV MCH MCHC RDW Plt Count MPV Absolute Neuts (auto) Neutrophils % Lymphocytes % Monocytes % Eosinophils % Basophils % Nucleated RBC % PT with INR INR Anticoagulation Therapy Puncture Site ABG pH ABG pCO2 at Pt Temp ABG pO2 at Pt Temp ABG HCO3 ABG O2 Sat (Measured) ABG O2 Content ABG Base Excess Sammy Test O2 Delivery Device Oxygen Flow Rate Vent Mode Vent Rate Mechanical Rate Pressure Support Vent Sodium 136 138 Potassium 4.0 4.0 Chloride 100 102 Carbon Dioxide 25 28 Anion Gap 11 9 BUN 20 H 18 Creatinine 1.5 H 1.6 H Creat Clearance w eGFR 44.69 41.49 POC Glucometer 404 Random Glucose 400 H* 359 H* Calcium 8.6 8.2 L Phosphorus 3.8 Magnesium 2.2 Total Bilirubin 0.9 AST 17 ALT 23 Alkaline Phosphatase 110 Creatine Kinase Creatine Kinase Index CK-MB (CK-2) Troponin I Total Protein 6.5 Albumin 3.6 Triglycerides Cholesterol Total LDL Cholesterol HDL Cholesterol Urine Color Urine Appearance Urine pH Ur Specific [place] Urine Protein Urine Glucose (UA) Urine Ketones Urine Blood Urine Nitrite Urine Bilirubin Urine Urobilinogen Ur Leukocyte Esterase Urine WBC (Auto) Urine RBC (Auto) Ur Epithelial Cells Opiates Screen Methadone Screen Barbiturate Screen Phencyclidine Screen Ur Amphetamines Screen MDMA (Ecstasy) Screen Benzodiazepines Screen Cocaine Screen U Marijuana (THC) Screen Alcohol, Quantitative Acetone, Qual Blood Type Antibody Screen Current Medications Generic Name Dose Route Start Last Admin Trade Name Patricia PRN Reason Stop Dose Admin Aspirin 81 mg 09/25/18 10:00 Ecotrin - PO DAILY NESSA Chlorhexidine Gluconate 1 applic 09/24/18 22:00 Hibiclens For Decolonization - TP HS NESSA Heparin Sodium (Porcine) 5,000 unit 09/24/18 06:00 09/24/18 06:18 Heparin - SQ 5,000 unit TID [facility] Administration Potassium Chloride/Sodium Chloride 20 meq in 1,000 mls @ 100 mls/hr 09/24/18 08:37 Ns+20 Meq Kcl - IV ASDIR NESSA Insulin Aspart 1 vial 09/24/18 11:00 Novolog Vial Sliding Scale - SQ ACHS [facility] Protocol Mupirocin 1 applic 09/24/18 10:00 Bactroban Ointment (For Decolonization) - NS 09/29/18 09:59 BID [facility] Pantoprazole Sodium 40 mg 09/24/18 10:00 Protonix Iv IVPUSH DAILY [facility] Thiamine HCl 200 mg 09/24/18 10:00 Vitamin B1 Injection - IVPB BID [facility] Home Medications Medication Instructions Recorded Albuterol Sulfate [Proair Hfa] 8.5 gm IH DAILY 09/24/18 Allopurinol [Zyloprim -] 300 mg PO DAILY 09/24/18 Aspirin [ASA -] 325 mg PO DAILY 09/24/18 Atorvastatin Ca [Lipitor] 80 mg PO HS 09/24/18 Clopidogrel Bisulfate [Clopidogrel] 75 mg PO DAILY 09/24/18 Fluticasone/Umeclidin/Vilanter 1 each IH DAILY 09/24/18 [Trelegy Ellipta 100-62.5-25] Montelukast Na [Singulair -] 10 mg PO HS 09/24/18 Nebivolol HCl [Bystolic] 20 mg PO DAILY 09/24/18 Olmesartan/Hydrochlorothiazide 1 each PO DAILY 09/24/18 [Benicar Hct 40-12.5 mg Tablet] Pantoprazole Sodium 40 mg PO DAILY 09/24/18 ASSESSMENT AND PLAN: 83 year old Male with history of HTN, HLD, CHF (unknown diastolic versus systolic), DM 2 (diet controlled), COPD, Hx CVA (2016) brought in by EMS after fiancee complained of new onset LLE weakness, LUE weakness, L facial droop, and receptive/expressive dysphasia. Patient denies headache/visual disturbance/limb numbness. Most symptoms have resolved except for partial L facial droop and mild decrease in Left venue attendant strength. She was also found to have fever and hyperglycemia in ED. 1. Acute CVA vs TIA Residual partial L facial droop - UMN distribution. Mild decrease in L venue attendant strength, LEs normal and equal power. No residual expressive or receptive dysphasia. CT Head negative for acute intracranial findings. MRI/MRA Brain, Carotid Duplex, Echo ordered. Neurochecks Continue Aspirin, Plavix, Statin Fasting Lipid panel in AM Speech therapy/PT eval. Neuro eval requested. 2. Hyperglycemia sec to untreated DM 2 A1C requested. Will start Novolog sliding scale. Once stable, can be initiated on Metformin. 3. APTRICK vs CKD Baseline Creat unknown Will hydrate and monitor renal response. Renal US requested. 4. Fever - on presentation, etiology unclear, possibly viral. CXR ordered Urine Cx and BCx pending. Will hold off Abx for now. 5. HTN - Will allow for permissive hypertension for now. Can resume Bystolic tomorrow. Will hold CHANI-I/HCTZ due to PATRICK. 6. COPD - Stable. Continue Trelegy Ellipta and Albuterol prn. 7. GERD - Continue PPI. DVT Px - Heparin SQ
[2018-09-24] MEDS ORDERED: ALBUTEROL SO4 0.083% IH SOL 2.5 MG/3 ML VIAL.NEB. NEB PRN (14:12)
--- NOTE | 2018-09-24 14:36 | CON.NEURO ---
Consult Consult Specialty:: NEURO Reason for Consultation:: AMS - History of Present Illness History of Present Illness: 83yo Left-handed M with history of CVA (2016; without residual deficits), CHF, COPD, HTN, HLD, and gout who presented last night with altered status, L facial droop, and L-sided weakness. Pt is currently oriented, however does not remember events. Pt's fiance provides gaps in medical history at this time. Pt around 20:30h 09/23/18 was at a concert sponsored by the [employer] when he developed some L limping noted by his fiance. Both the pt and family did not think anything of this, however later that night pt's fiance was awoken to find pt altered with one shoe on, trying to fill a glass of water however he could not do so. Pt did not realize he had shoes on at all and he was noted to have L head tilt throughout this episode.EMS was called at this point and pt was sent to our ED for further evaluation. Of note in pt's labs, he was found to be hyperglycemic to 500's and hypokalemic to 3.3. I saw and examined the pt at the bedside; he is back to his baseline; he denies h/o DM or seizure in thre past. - Past Medical History [employer]: Yes: CVA Cardio/Vascular: Yes: CHF Pulmonary: Yes: COPD - Alcohol/Substance Use Hx Alcohol Use: Yes (few drinks nightly) - Smoking History Smoking history: Never smoked Have you smoked in the past 12 months: No Home Medications - Allergies Allergies/Adverse Reactions: Allergies Allergy/AdvReac Type Severity Reaction Status Date / Time No Known Allergies Allergy Verified 09/24/18 09:36 - Home Medications Home Medications: Ambulatory Orders Albuterol Sulfate [Proair Hfa] 8.5 gm IH DAILY 09/24/18 Allopurinol [Zyloprim -] 300 mg PO DAILY 09/24/18 Aspirin [ASA -] 325 mg PO DAILY 09/24/18 Atorvastatin Ca [Lipitor] 80 mg PO HS 09/24/18 Clopidogrel Bisulfate [Clopidogrel] 75 mg PO DAILY 09/24/18 Fluticasone/Umeclidin/Vilanter [Trelegy Ellipta 100-62.5-25] 1 each IH DAILY 09/13 Montelukast Na [Singulair -] 10 mg PO HS 09/24/18 Nebivolol HCl [Bystolic] 20 mg PO DAILY 09/24/18 Olmesartan/Hydrochlorothiazide [Benicar Hct 40-12.5 mg Tablet] 1 each PO DAILY 09/24/18 Pantoprazole Sodium 40 mg PO DAILY 09/24/18 Review of Systems - Review of Systems Constitutional: reports: Other (all 14 organs revisewed and -ve beside HPI.) Physical Exam-Neuro Vital Signs: Vital Signs Temperature 99.2 F 09/24/18 14:00 Pulse Rate 53 L 09/24/18 14:00 Respiratory Rate 18 09/24/18 14:00 Blood Pressure 125/50 L 09/24/18 14:00 O2 Sat by Pulse Oximetry (%) 100 09/24/18 11:00 Constitutional: Yes: Well Nourished, No Distress Neck: Yes: Supple Cardiovascular: Yes: Regular Rate and Rhythm Respiratory: Yes: Regular Gastrointestinal: Yes: Normal Bowel Sounds Musculoskeletal: Yes: WNL Edema: No Labs: CBC, BMP 09/24/18 08:55 09/24/18 12:05 INR, PTT INR 1.13 (0.83-1.09) H 09/24/18 01:33 - Neuro Exam Level Of Consciousness: Yes: Alert, Oriented to Person, Oriented to Place, Oriented to Time Eyes: Yes: PERRLA Speech: WNL Dominant Hand: Left Cranial Nerves II-XII Intact: Yes Gag: Present DTR's: 1+ Left Bicep, 1+ Right Bicep, 1+ Left Tricep, 1+ Right Tricep, 1+ Left Brachioradialis, 1+ Right Brachioradialis, 1+ Left Achilles, 1+ Right Achilles Babinski: Absent Response to light touch: Normal Response to pain prick: Normal Response to temperature: Normal Coordination: Normal: Finger to Nose Motor Strength: 5/5: Left Arm, Right Arm, Left Leg, Right Leg Imaging - Results Cat Scan: Image Reviewed (No acute event), Other Problem List - Problems (1) TIA (transient ischemic attack) Code(s): G45.9 - TRANSIENT CEREBRAL ISCHEMIC ATTACK, UNSPECIFIED Assessment/Plan 83 Y/O AAM, L-handed, w h/o stroke wo residual , copd, CHF, gout p/w transient L face droop and weakness and AMS; his sym has resolved , neuro exam nonfocal ; CTH (-),his BS was 500 at arrival . Hx and exam suggestive of stroke like symtoms due to hyperglycemia vs metabolic encephalopathy vs seizure . MRI /A brain pending EEG routine Baby asp+ plavix statin seizure , fall precautions Neuro check q 2 hours Health maintenance per primary team. Thank you. Jose Morales MD
[2018-09-24] MEDS: CLOPIDOGREL BISULFATE 75 MG TABLET (FP) PO SCH (17:36)
[2018-09-24] MEDS ORDERED: CHLORHEXIDINE GLUCONATE 4% CLEANSER FOR DECOLONIZATION TP SCH (22:00)
[2018-09-24] MEDS: MONTELUKAST NA 10 MG TABLET PO SCH (23:26)
[2018-09-24] MEDS: ATORVASTATIN CA 80 MG TABLET (FP) PO SCH (23:26)
[2018-09-24] MEDS: THIAMINE HCL 200 MG/2 ML VIAL IVPB SCH (23:27)
[2018-09-25] MEDS: HEPARIN NA (PORCINE) 5,000 UNITS/ML 1ML VIAL SQ SCH ×3 (05:42→21:52)
[2018-09-25 05:52] LABS: HEMATOCRIT 35.5 % (35.4-49); MCH 30.3 pg (25.7-33.7); MCHC 33.8 g/dl (32.0-35.9); MEAN CELL VOLUME 89.6 fl (80-96); MEAN PLT VOLUME 9.7 fl (7.5-11.1); PLATELET COUNT 149 K/MM3 (134-434); RBC 3.96 M/mm3 (4.00-5.60); WHITE BLOOD COUNT 6.7 K/mm3 (4.0-10.0)
[2018-09-25 06:24] LABS: ANION GAP 9 MMOL/L (8-16); BLOOD UREA NITROGEN 15 mg/dL (7-18); CALCIUM 8.1 mg/dL (8.5-10.1); CHLORIDE 106 mmol/L (98-107); CO2 26 mmol/L (21-32); CREATININE 1.2 mg/dL (0.55-1.3); GLUCOSE,RANDOM 135 mg/dL (74-106); MAGNESIUM 1.9 mg/dL (1.8-2.4); PHOSPHOROUS 3.3 mg/dL (2.5-4.9); POTASSIUM 3.6 mmol/L (3.5-5.1); SODIUM 140 mmol/L (136-145)
[2018-09-25] MEDS: INSULIN SLIDING SCALE (NOVOLOG) 1 VIAL SQ SCH ×4 (06:52→21:53)
[2018-09-25] MEDS: PANTOPRAZOLE 40 MG TABLET (FP) PO SCH (09:54)
[2018-09-25] MEDS: ASPIRIN COATED 81 MG TABLET.EC PO SCH (09:54)
[2018-09-25] MEDS: ALLOPURINOL 300 MG TABLET (FP) PO SCH (09:54)
[2018-09-25] MEDS: CLOPIDOGREL BISULFATE 75 MG TABLET (FP) PO SCH (09:54)
[2018-09-25] MEDS: THIAMINE HCL 200 MG/2 ML VIAL IVPB SCH ×2 (09:54→21:54)
[2018-09-25] MEDS: SODIUM CHLORIDE 0.9%/KCL 20 MEQ/1,000 ML INFUS.BAG IV SCH (09:56)
[2018-09-25] MEDS ORDERED: NEBIVOLOL 10 MG TABLET (FP) PO SCH ×2 (10:00→10:16)
[2018-09-25] MEDS ORDERED: ASPIRIN COATED 81 MG TABLET.EC PO SCH (10:00)
--- NOTE | 2018-09-25 11:31 | PN ---
Progress Note (short form) - Note Progress Note: SUBJECTIVE: Feels well - no complaints. No fever/chills/cough/sputum/headache. No headache/visual disturbance/drooling/slurring of speech. No new limb numbness /weakness. OBJECTIVE: Afebrile, Hemodynamically Stable. Last Vital Signs Temp Pulse Resp BP Pulse Ox 98.2 F 51 L 18 143/80 95 09/25/18 08:40 09/25/18 10:20 09/25/18 08:40 09/25/18 10:20 09/25/18 08:40 HEENT - Atraumatic, Normocephalic, L partial facial droop Heart - S1, S2, RRR Lungs - clear to auscultation Abdomen - Soft, non-tender. Bowel Sounds normal. Extremities - no edema, no calf tenderness Neuro - AAO x 3. Mildly decreased L hand-cable maintainer strength. L partial facial droop. Tone/Power normal LEs. Laboratory Results - last 24 hr 09/24/18 09/24/18 09/24/18 08:55 11:47 12:05 WBC RBC Hgb Hct MCV MCH MCHC RDW Plt Count MPV Sodium 138 Potassium 4.0 Chloride 102 Carbon Dioxide 28 Anion Gap 9 BUN 18 Creatinine 1.6 H Creat Clearance w eGFR 41.49 POC Glucometer 404 Random Glucose 359 H* Hemoglobin A1c % Calcium 8.2 L Phosphorus Magnesium Blood Type O POSITIVE 09/24/18 09/24/18 09/24/18 15:22 17:30 23:25 WBC RBC Hgb Hct MCV MCH MCHC RDW Plt Count MPV Sodium Potassium Chloride Carbon Dioxide Anion Gap BUN Creatinine Creat Clearance w eGFR POC Glucometer 422 80 Random Glucose Hemoglobin A1c % 10.2 H Calcium Phosphorus Magnesium Blood Type 09/25/18 09/25/18 09/25/18 05:15 05:15 05:21 WBC 6.7 RBC 3.96 L Hgb 12.0 Hct 35.5 MCV 89.6 MCH 30.3 MCHC 33.8 RDW 14.0 Plt Count 149 MPV 9.7 Sodium 140 Potassium 3.6 Chloride 106 Carbon Dioxide 26 Anion Gap 9 BUN 15 Creatinine 1.2 Creat Clearance w eGFR 57.82 POC Glucometer 140 Random Glucose 135 H Hemoglobin A1c % Calcium 8.1 L Phosphorus 3.3 Magnesium 1.9 Blood Type Current Medications Generic Name Dose Route Start Last Admin Trade Name Freq PRN Reason Stop Dose Admin Albuterol Sulfate 1 amp 09/24/18 14:12 Ventolin 0.083% Nebulizer Soln - NEB Q6H PRN SHORT OF BREATH/WHEEZING Allopurinol 300 mg 09/25/18 10:00 09/25/18 09:54 Zyloprim - PO 300 mg DAILY NESSA Administration Aspirin 81 mg 09/25/18 10:00 09/25/18 09:54 Ecotrin - PO 81 mg DAILY NESSA Administration Atorvastatin Calcium 80 mg 09/24/18 22:00 09/24/18 23:26 Lipitor - PO 80 mg HS NESSA Administration Clopidogrel Bisulfate 75 mg 09/24/18 14:15 09/25/18 09:54 Plavix - PO 75 mg DAILY NESSA Administration Heparin Sodium (Porcine) 5,000 unit 09/24/18 22:00 09/25/18 05:42 Heparin - SQ 5,000 unit TID NESSA Administration Potassium Chloride/Sodium Chloride 20 meq in 1,000 mls @ 100 mls/hr 09/24/18 20:32 09/25/18 09:56 Ns+20 Meq Kcl - IV 100 mls/hr ASDIR NESSA Administration Insulin Aspart 1 vial 09/24/18 22:00 09/25/18 06:52 Novolog Vial Sliding Scale - SQ Not Given ACHS [facility] Protocol Montelukast Sodium 10 mg 09/24/18 22:00 09/24/18 23:26 Singulair - PO 10 mg HS NESSA Administration Nebivolol 10 mg 09/25/18 10:16 Bystolic - PO DAILY NESSA Non-Formulary Medication 1 each 09/25/18 10:00 Fluticasone/Umeclidin/Vilanter [Trelegy Ellipta 100-62.5-25] IH DAILY NESSA Pantoprazole Sodium 40 mg 09/25/18 10:00 09/25/18 09:54 Protonix - PO 40 mg DAILY NESSA Administration Thiamine HCl 200 mg 09/24/18 22:00 09/25/18 09:54 Vitamin B1 Injection - IVPB 200 mg BID NESSA Administration Home Medications Medication Instructions Recorded Albuterol Sulfate [Proair Hfa] 8.5 gm IH DAILY 09/24/18 Allopurinol [Zyloprim -] 300 mg PO DAILY 09/24/18 Aspirin [ASA -] 325 mg PO DAILY 09/24/18 Atorvastatin Ca [Lipitor] 80 mg PO HS 09/24/18 Clopidogrel Bisulfate [Clopidogrel] 75 mg PO DAILY 09/24/18 Fluticasone/Umeclidin/Vilanter 1 each IH DAILY 09/24/18 [Trelegy Ellipta 100-62.5-25] Montelukast Na [Singulair -] 10 mg PO HS 09/24/18 Nebivolol HCl [Bystolic] 20 mg PO DAILY 09/24/18 Olmesartan/Hydrochlorothiazide 1 each PO DAILY 09/24/18 [Benicar Hct 40-12.5 mg Tablet] Pantoprazole Sodium 40 mg PO DAILY 09/24/18 ASSESSMENT AND PLAN: 83 year old Male with history of HTN, HLD, CHF (unknown diastolic versus systolic), DM 2 (diet controlled), COPD, Hx CVA (2016) brought in by EMS after fiancee complained of new onset LLE weakness, LUE weakness, L facial droop, and receptive/expressive dysphasia. Patient denies headache/visual disturbance/limb numbness. Most symptoms have resolved except for partial L facial droop and mild decrease in Left cable maintainer strength. He was also found to have fever and hyperglycemia in ED, which have since resolved. 1. Acute CVA vs TIA Residual partial L facial droop - UMN distribution. Mild decrease in L cable maintainer strength, LEs normal and equal in power. No residual expressive or receptive dysphasia. CT Head negative for acute intracranial findings. MRI/MRA Brain - no acute ischemic or hemodynamic findings. Carotid Duplex negative Echo pending. Neurochecks ongoing. Neurology following - requested EEG to help exclude seizure. Continue Aspirin, Plavix, Statin. Speech therapy/PT 2. Hyperglycemia sec to untreated DM 2, resolved A1C 10.2 Started Novolog sliding scale. Once stable for discharge, can be initiated on Metformin. 3. PATRICK on CKD Resolved with IV hydration. Renal US - Non-obstructing L renal calculus, no hydronephrosis. Discontinue IV fluids. 4. Fever - on presentation, now resolved, etiology unclear, possibly viral. CXR - no infiltrate Urine Cx and BCx negative. Not on Abx. 5. HTN - will resume Bystolic at half-dose 10mg due to Bradycardia HR in 40s/ 50s. Will hold CHANI-I/HCTZ for now due to recent PATRICK and borderline BP. 6. COPD - Stable. Continue Trelegy Ellipta and Albuterol prn. 7. GERD - Continue PPI. DVT Px - Heparin SQ Visit type - Emergency Visit Emergency Visit: Yes ED Registration Date: 09/24/18 Care time: The patient presented to the Emergency Department on the above date and was hospitalized for further evaluation of their emergent condition. - New Patient This patient is new to me today: No - Critical Care Critical Care patient: No - Discharge Referral Referred to [facility] No
[2018-09-25] MEDS: MONTELUKAST NA 10 MG TABLET PO SCH (21:51)
[2018-09-25] MEDS: ATORVASTATIN CA 80 MG TABLET (FP) PO SCH (21:51)
[2018-09-26] MEDS: INSULIN SLIDING SCALE (NOVOLOG) 1 VIAL SQ SCH ×4 (06:46→21:49)
[2018-09-26] MEDS: HEPARIN NA (PORCINE) 5,000 UNITS/ML 1ML VIAL SQ SCH ×3 (06:46→21:46)
[2018-09-26] MEDS: CLOPIDOGREL BISULFATE 75 MG TABLET (FP) PO SCH (09:00)
[2018-09-26] MEDS: THIAMINE HCL 200 MG/2 ML VIAL IVPB SCH ×2 (09:00→21:51)
[2018-09-26] MEDS: ASPIRIN COATED 81 MG TABLET.EC PO SCH (09:00)
[2018-09-26] MEDS: PANTOPRAZOLE 40 MG TABLET (FP) PO SCH (09:01)
[2018-09-26] MEDS: ALLOPURINOL 300 MG TABLET (FP) PO SCH (09:01)
--- NOTE | 2018-09-26 10:31 | CONSULT ---
Admitting History and Physical - Primary Care Physician PCP: Krysten Ren - Admission History of Present Illness: 83 Y/O AAM, L-handed, w h/o stroke wo residual , copd, CHF, gout p/w transient L face droop and weakness and AMS; his symptoms resolved , neuro exam nonfocal Selected Entries 09/26/18 09/26/18 09/26/18 06:00 08:39 09:44 Breakfast 100% Temperature 97.9 F 97.8 F Tolerating soft,reg diet, thin liquid. MRI/MRA (-) This is my first consult for this pt. Pending EEG History Source: Patient Limitations to Obtaining History: No Limitations - Past Medical History VP PRODUCTION: Yes: CVA Cardiovascular: Yes: CHF Pulmonary: Yes: COPD - Smoking History Smoking history: Never smoked Have you smoked in the past 12 months: No - Alcohol/Substance Use Hx Alcohol Use: Yes (few drinks nightly) History - Admission Reason For Visit: TRANSIENT ISCHEMIC ATTACK - Diagnostics X-ray: Report Reviewed CT Scan: Report Reviewed MRI: Report Reviewed Other: Pending (eeg) - General Mental Status: Alert and Oriented, Awake and Alert, Able to Follow Commands Attention: Intact Ability to Follow Directions: Excellent Head/Neck Control: WFL - Hearing Hearing: Normal Speech Evaluation - Communication Primary Language: GERMAN Communication: Yes: Within Normal Limits Oral Expression Ability: Yes: No Impairment - Speech Production Able to Make Needs Known: Yes: WNL - Speech Characteristics Voice Pitch: Yes: Normal, Pitch Breaks Voice Phonatory-based Quality: Yes: Dysphonia Speech Pattern: Normal Speech Clarity: < 100% Nasal Resonance: Normal Articulation: Yes: Precise Rate of Speech: Intact - Language/Auditory Comprehension Follows: Yes: 2 Stage Simple Commands - Language/Verbal Expression Able to Respond to Simple Queries: Yes: WNL Able to Communicate Wants and Needs: Yes: WNL Functional Communication Status: Yes: WNL Attention: Yes: Intact - Memory/Perception long-term Memory: Yes: WNL Short Term Memory: Yes: WNL - Swallow Evaluation/Bedside Assessment Current Nutritional Intake: Regular, Thin Liquids Oral Secretions: Yes: WFL Dentition: Yes: Adequate Facial Symmetry at Rest: Symmetrical Sensation: Normal Jaw Position: Open at Rest Against Resistance Opening: Normal Against Resistance Closing: Normal Pucker Lips: Normal Smile: Normal Lingual Movement: Symmetric Lingual Speed of Movement: Normal Lingual Movement Strgth Against Opposition: Normal Lingual Movement Characteristics: Normal Velopharyngeal Movement: Normal Laryngeal Elevation: WFL Laryngeal Movement: Able to Palpate Rate of Intake: WFL Bolus Size: WFL Labial Seal: WFL Chewing: WFL Oral Prep Time: WFL A-P Transit: WFL Timing of Swallow: WFL Coughing/Throat Clear: No Change in Voice: No Recommendations - Speech Evaluation, Impression/Plan Impression: Mild dysphonia, pt's report as baseline. Speech,language, cognition intact - Dysphagia Impressions/Plan Swallowing Skills: WF Dysphagia Impressions: No Impairment *Silent aspiration: cannot be R/O at bedside Dysphagia Treatment Plan: Other (monitor po tolerance) - Recommendations Diet Consistency: Regular Medication Administration: Whole with water Liquids: Thin Liquids
--- NOTE | 2018-09-26 14:35 | PN ---
Progress Note (short form) - Note Progress Note: NEUROLOGY PROGRESS NOTE: Events reviewed and discussed with staff. Dr. Morales's coverage consultation is greatly appreciated. 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 Fiance at bedside. Pmhx includes: HTN, HLD, CHF, COPD, ? CVA vs. TIA. He was admitted here with possible L facial droop, confusion and shaking of the hands and was found to have BS > 600s and newly diagnosed DM (with A1c of 12.1) . Symptoms improved with correction of BG. Currently receiving Thiamine 200 mg BID IVP. Brain MRI/A (reviewed): no obvious infarct, periventricular and subcortical microvascular changes Carotid duplex: mild stenosis of arteries Review of systems significant for L THR in 2016, with subsequent ongoing nocturnal pains in area. Insomnia attributed to nocturia. Fiance notes also slowing of gait over course of this time. AUGUSTIN: BPs 150s-90s. P 50s. NEURO EXAM: Mentation/Speech: Ox [facility]. September 26, 2018. TUMP with poor reversals. /3 recall at 3. CNII-XII: Slightly masked. No facial. EOM intact and full dewey appreciated. + glabella Motor: No drift or tremor. Strength normal. Cogwheeling present B/L with reinforcement. Decreased ANA. Reflexes normal and symmetric. Toes downgoing. Coordination: No FTN dystaxia, but slowed. Sensation: decreased sensation to vibration in feet. Gait: Strides preserved with minimal arm swing. Impression: 1. 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 Extrapyramidal Features (Parkinsonism +/- Parkinson's disease ) 3. Peripheral Neuropathy (c/w diabetes) +/- Restless Legs Syndrome (RLS) associatd with PD Suggest: Order B12, TSH, RPR, Fe++, Iron, TIBC Remain on ASA, Plavix and statin for stroke prevention Strict BS control and education Start pramipexole 0.125 mg po qhs and increase gradually as necessary and tolerated Neuro f/u as out-patient for nerve studies of legs (EMG/NCS) and management of PD/RLS. Thank you very much, Ramakrishna Sanford MD
--- NOTE | 2018-09-26 15:09 | ECHO ---
Name: RONALDO COTE Exam:Adult Echocardiogram Study Date: 09/26/2018 10:52 AM Age: 83 yrs Reason For Study: HTN Height: 72 in Weight: 251 lb BSA: 2.3 m2 MMode/2D Measurements & Calculations IVSd: 1.2 cm Ao root diam: 3.9 cm LVIDd: 4.8 cm LA dimension: 4.6 cm LVIDs: 2.7 cm ACS: 1.9 cm LVPWd: 1.1 cm IVSs: 1.8 cm LVPWs: 1.4 cm EDV(Teich): 109.4 ml ESV(Teich): 27.4 ml Doppler Measurements & Calculations MV E max doug: 54.3 cm/sec Ao V2 max: 134.7 cm/sec MV A max doug: 74.0 cm/sec Ao max P.3 mmHg MV E/A: 0.73 Ao V2 mean: 95.9 cm/sec Ao mean P.2 mmHg Ao V2 VTI: 26.7 cm MR max doug: 538.2 cm/sec TR max doug: 267.8 cm/sec MR max P.4 mmHg TR max P.7 mmHg PI end-d doug: 110.6 cm/sec Med Peak E' Doug: 4.3 cm/sec Med E/e': 12.7 Lat Peak E' Doug: 6.1 cm/sec Lat E/e': 8.8 Procedure A complete two-dimensional transthoracic echocardiogram was performed (2D, M-mode, Doppler and color flow Doppler). Left Ventricle The left ventricle is normal in size. Left ventricular systolic function is normal. Ejection Fraction = >70%. Grade I diastolic dysfunction, (abnormal relaxation pattern). Ratio E/E'= 11. No regional wall motion abnormalities noted. Right Ventricle The right ventricle is normal size. The right ventricular systolic function is normal. Atria The left atrium is mildly dilated. Right atrial size is normal. Mitral Valve The mitral valve is normal in structure and function. There is no mitral regurgitation noted. Tricuspid Valve The tricuspid valve is normal in structure and function. There is mild to moderate tricuspid regurgit ation. Pulmonary artery systolic pressure is at least 40 mmHg if RA pressure is assumed 3 mmHg. Aortic Valve There is mild aortic sclerosis.;. Mild aortic regurgitation. Pulmonic Valve The pulmonic valve is not well visualized. Mild pulmonic valvular regurgitation. Great Vessels Mild aortic root dilatation. Pericardium/Pleura There is no pericardial effusion. Interpretation Summary The left ventricle is normal in size. Left ventricular systolic function is normal. No regional wall motion abnormalities noted. Ejection Fraction = >70%. Grade I diastolic dysfunction, (abnormal relaxation pattern). Ratio E/E'= 11 c/w normal filling pressure The right ventricular systolic function is normal. The left atrium is mildly dilated. Right atrial size is normal. There is mild to moderate tricuspid regurgitation. Pulmonary artery systolic pressure is at least 40 mmHg if RA pressure is assumed 3 mmHg There is mild aortic sclerosis. Mild aortic regurgitation. Mild pulmonic valvular regurgitation. Mild aortic root dilatation. There is no pericardial effusion. Previous study is not available for comparison Darwin Leyva MD 09/26/2018 03:08 PM
--- NOTE | 2018-09-26 15:34 | PN ---
Teaching Attending Note Name of Resident: Lucas Orantes ATTENDING PHYSICIAN STATEMENT I saw and evaluated the patient. I reviewed the resident's note and discussed the case with the resident. I agree with the resident's findings and plan as documented. SUBJECTIVE:asymptomatic. denies CP, SOB, fever, chills, N/V/C/D, dizzyness, blurred vision, OBJECTIVE: Last Vital Signs Temp Pulse Resp BP Pulse Ox 99.2 F 50 L 18 159/79 95 09/26/18 14:00 09/26/18 14:00 09/26/18 14:00 09/26/18 14:00 09/26/18 08:39 General NAD CV S1 S2 RRR no murmur/rub/gallop ASSESSMENT AND PLAN: 83 year old Male with history of HTN, HLD, CHF (unknown diastolic versus systolic), DM 2 (diet controlled), COPD, Hx CVA (2016) brought in by EMS after fiancee complained of new onset LLE weakness, LUE weakness, L facial droop, and receptive/expressive dysphasia. Patient denies headache/visual disturbance/limb numbness. 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 He was also found to have fever and hyperglycemia in ED, which have since resolved. 1. Acute metabolic encephalopathy- TIA vs hypergylcemia. symptoms resolved. workup is negative. cont asa/statin. PT eval. 2. Asymptomatic bradycardia- 1st degree heart block on EKG. HR increases to 66 bpm. never had cardiac workup in the past. hold betablocker. cardio consult 3. New onset DM- A1c 12. counseled in detail on lasting effects of uncontrolled DM. diabetic teaching, web support engineer consult. will start levemir 10 units tonight, iss and BGM. 4. obesity- BMI 27.5. counseled on lifestyle modifications. weight loss goal 1 lb/week 5. PATRICK- due to hyperglycemia and dehydration. now resolved 6. RLS-started on prampixole 7. HTN- re-start valsartain. titrate to optimize control 8. COPD- cont inhalers 9. DVT ppx- hep sq 10. spoke with present at bedside. all questions answered. verbalized understanding and agreement with plan. plan for d/c tomorrow
--- NOTE | 2018-09-26 16:02 | PN ---
Physical Exam: SUBJECTIVE: Patient seen and examined at bedside. Reports no acute complaints. Denies any ongoing weakness, sensory changes, difficulty with speech. OBJECTIVE: Vital Signs Period Temp Pulse Resp BP Sys/Rick Pulse Ox Last 24 Hr 97.8 F-99.2 F 47-59 18-20 150-164/72-97 95-95 GENERAL: A&Ox3, NAD HEENT: NC/AT, EOMI, PERRLA, anicteric sclera, MMM NECK: Trachea midline, full range of motion, supple, no LAD, no JVD LUNGS: Breath sounds equal, clear to auscultation bilaterally, no wheezes, no crackles, no accessory muscle use. 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 SKIN: Warm, dry, normal turgor, no rashes or lesions noted Laboratory Results - last 24 hr 09/25/18 09/25/18 09/26/18 16:53 21:51 06:45 POC Glucometer 303 295 153 Hemoglobin A1c % 09/26/18 09/26/18 08:40 11:14 POC Glucometer 222 Hemoglobin A1c % 12.9 H Active Medications Generic Name Dose Route Start Last Admin Trade Name Freq PRN Reason Stop Dose Admin Albuterol Sulfate 1 amp 09/24/18 14:12 Ventolin 0.083% Nebulizer Soln - NEB Q6H PRN SHORT OF BREATH/WHEEZING Allopurinol 300 mg 09/25/18 10:00 09/26/18 09:01 Zyloprim - PO 300 mg DAILY NESSA Administration Aspirin 81 mg 09/25/18 10:00 09/26/18 09:00 Ecotrin - PO 81 mg DAILY NESSA Administration Atorvastatin Calcium 80 mg 09/24/18 22:00 09/25/18 21:51 Lipitor - PO 80 mg HS NESSA Administration Clopidogrel Bisulfate 75 mg 09/24/18 14:15 09/26/18 09:00 Plavix - PO 75 mg DAILY NESSA Administration Heparin Sodium (Porcine) 5,000 unit 09/24/18 22:00 09/26/18 06:46 Heparin - SQ 5,000 unit TID NESSA Administration Insulin Aspart 1 vial 09/24/18 22:00 09/26/18 12:57 Novolog Vial Sliding Scale - SQ 4 unit ACHS NESSA Administration Protocol Montelukast Sodium 10 mg 09/24/18 22:00 09/25/18 21:51 Singulair - PO 10 mg HS NESSA Administration Non-Formulary Medication 1 each 09/25/18 10:00 Fluticasone/Umeclidin/Vilanter [Trelegy Ellipta 100-62.5-25] IH DAILY NESSA Pantoprazole Sodium 40 mg 09/25/18 10:00 09/26/18 09:01 Protonix - PO 40 mg DAILY NESSA Administration Pramipexole Dihydrochloride 0.125 mg 09/26/18 20:00 Mirapex - PO HS@2000 NESSA Thiamine HCl 200 mg 09/24/18 22:00 09/26/18 09:00 Vitamin B1 Injection - IVPB 200 mg BID NESSA Administration ASSESSMENT/PLAN: 83 y/o M w/ PMHx HTN, HLD, CHF (unknown subtype), COPD, CVA in 2016, borderline DM, BIBEMS following sudden onset left-sided facial droop, LLE and LUE weakness , slurred speech, and hemineglect. Admitted for stroke workup. #Acute CVA vs TIA -lateralizing signs symptoms fully resolved -HCT, MRI, MRA, carotid dopplers all benign -echo showing increased pulmonary artery pressure, mild diastolic dysfunction, mild aortic root dilatation, otherwise reassuring -neuro consulted, finds EPS on neurologic exam, recommends: -B12, TSH, RPR, iron studies -Remain on ASA, Plavix and statin for stroke prevention -Strict BS control and education -Start pramipexole 0.125 mg po qhs and increase gradually as necessary and tolerated -Neuro f/u as out-patient for nerve studies of legs (EMG/NCS) and management of PD/RLS. -Speech therapy/PT #DM -gross A1c elevation, BGM ~500 on presentation -BGM ACHS, SSI -insulin education #PATRICK on CKD -Resolved with IV hydration. -Renal US - Non-obstructing L renal calculus, no hydronephrosis. #HTN -holding bystolic d/t bradycardia events -cardiology consulted -holding Bevicar d/t recent PATRICK -monitor BP #COPD -stable, cont Trelegy Ellipta and Albuterol prn. #PPx -DVT: heparin subq -GI: PTX #code -full #dispo -cont to monitor on non-cardiac tele Visit type - Emergency Visit Emergency Visit: No - New Patient This patient is new to me today: Yes Date on this admission: 09/26/18 - Critical Care Critical Care patient: No
[2018-09-26] MEDS: VALSARTAN 40 MG TABLET (FP) PO SCH (17:49)
--- NOTE | 2018-09-26 18:09 | PN ---
Progress Note, Physician History of Present Illness: 83yo Left-handed M with history of CVA (2016; without residual deficits), CHF, COPD, HTN, HLD, and gout who presented last night with altered status, L facial droop, and L-sided weakness. Pt is currently oriented, however does not remember events. Pt's fiance provides gaps in medical history at this time. Pt around 20:30h 09/23/18 was at a concert sponsored by the [employer] when he developed some L limping noted by his fiance. Both the pt and family did not think anything of this, however later that night pt's fiance was awoken to find pt altered with one shoe on, trying to fill a glass of water however he could not do so. Pt did not realize he had shoes on at all and he was noted to have L head tilt throughout this episode.EMS was called at this point and pt was sent to our ED for further evaluation. Of note in pt's labs, he was found to be hyperglycemic to 500's and hypokalemic to 3.3. FU : doping better , no complaints denies HX of DM--newly Dx - Current Medication List Current Medications: Active Medications Albuterol Sulfate (Ventolin 0.083% Nebulizer Soln -) 1 amp NEB Q6H PRN PRN Reason: SHORT OF BREATH/WHEEZING Allopurinol (Zyloprim -) 300 mg PO DAILY [facility] Last Admin: 09/26/18 09:01 Dose: 300 mg Aspirin (Ecotrin -) 81 mg PO DAILY [facility] Last Admin: 09/26/18 09:00 Dose: 81 mg Atorvastatin Calcium (Lipitor -) 80 mg PO [facility] Last Admin: 09/25/18 21:51 Dose: 80 mg Clopidogrel Bisulfate (Plavix -) 75 mg PO DAILY [facility] Last Admin: 09/26/18 09:00 Dose: 75 mg Heparin Sodium (Porcine) (Heparin -) 5,000 unit SQ TID [facility] Last Admin: 09/26/18 14:45 Dose: 5,000 unit Insulin Aspart (Novolog Vial Sliding Scale -) 1 vial SQ [facility]; Protocol Last Admin: 09/26/18 17:45 Dose: 6 unit Insulin Detemir (Levemir Vial) 10 units [address]Q [facility] Montelukast Sodium (Singulair -) 10 mg PO [facility] Last Admin: 09/25/18 21:51 Dose: 10 mg Non-Formulary Medication (Fluticasone/Umeclidin/Vilanter [Trelegy Ellipta 100- 62.5-25]) 1 each IH DAILY [facility] Pantoprazole Sodium (Protonix -) 40 mg PO DAILY [facility] Last Admin: 09/26/18 09:01 Dose: 40 mg Pramipexole Dihydrochloride (Mirapex -) 0.125 mg PO HS@2000 [facility] Thiamine HCl (Vitamin B1 Injection -) 200 mg IVPB BID [facility] Last Admin: 09/26/18 09:00 Dose: 200 mg Valsartan (Diovan -) 40 mg PO DAILY [facility] Last Admin: 09/26/18 17:49 Dose: 40 mg - Objective Vital Signs: Vital Signs Temperature 99.2 F 09/26/18 14:00 Pulse Rate 50 L 09/26/18 14:00 Respiratory Rate 18 09/26/18 14:00 Blood Pressure 159/79 09/26/18 14:00 O2 Sat by Pulse Oximetry (%) 95 09/26/18 08:39 Labs: CBC, BMP 09/25/18 05:15 09/25/18 05:15 INR, PTT INR 1.13 (0.83-1.09) H 09/24/18 01:33 Assessment/Plan 83 Y/O AAM, L-handed, w h/o stroke wo residual , copd, CHF, gout p/w transient L face droop and weakness and AMS; his sym has resolved , neuro exam nonfocal ; CTH (-),his BS was 500 at arrival . Hx and exam suggestive of stroke like symtoms due to hyperglycemia vs metabolic encephalopathy vs less likely a seizure . MRI /A brain (-) stroke Sx likely metabolic in origin newly DX DM--endocrine FU , A1c >[address] GONSALEZ
[2018-09-26] MEDS ORDERED: PRAMIPEXOLE DIHYDROCHLORIDE 0.125 MG TABLET PO SCH (20:00)
[2018-09-26] MEDS ORDERED: amLODIPine BESYLATE 5 MG TABLET (FP) PO ONE (21:13)
[2018-09-26] MEDS: MONTELUKAST NA 10 MG TABLET PO SCH (21:46)
[2018-09-26] MEDS: ATORVASTATIN CA 80 MG TABLET (FP) PO SCH (21:46)
[2018-09-26] MEDS ORDERED: INSULIN (LEVEMIR) 100 UNITS/ML UNITS SQ SCH (22:00)
[2018-09-27] MEDS: HEPARIN NA (PORCINE) 5,000 UNITS/ML 1ML VIAL SQ SCH (05:50)
[2018-09-27] MEDS: INSULIN SLIDING SCALE (NOVOLOG) 1 VIAL SQ SCH ×2 (06:02→12:16)
[2018-09-27] MEDS: ALLOPURINOL 300 MG TABLET (FP) PO SCH (09:54)
[2018-09-27] MEDS: VALSARTAN 40 MG TABLET (FP) PO SCH (09:54)
[2018-09-27] MEDS: ASPIRIN COATED 81 MG TABLET.EC PO SCH (09:54)
[2018-09-27] MEDS: PANTOPRAZOLE 40 MG TABLET (FP) PO SCH (09:54)
[2018-09-27] MEDS: CLOPIDOGREL BISULFATE 75 MG TABLET (FP) PO SCH (09:54)
[2018-09-27] MEDS: THIAMINE HCL 200 MG/2 ML VIAL IVPB SCH (09:59)
--- NOTE | 2018-09-27 10:51 | CON.CARD ---
Consult Consult Specialty:: Cardiology Referred by:: Hospitalist Reason for Consultation:: recurrent bradycardia - History of Present Illness Chief Complaint: weakness History of Present Illness: 83 year old man with pmh HTN, DMII, HLD, CHF unknown details, COPD, MIKE, h/o CVA 2016 admitted with L sided weakenss aphasia, initial concern for TIA/CVA but felt to be more likely metabolic in origin, during admission noted to have periods of sinus bradycardia. pt seen and examined today in nad with at bedside. states that he has been on bystolic for at least a year for HTN. 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 denies lightheadedness, dizziness, syncope, near syncope, fatigue, chest pain, sob. 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 Cardio/Vascular: Yes: CHF, HTN Pulmonary: Yes: COPD, Sleep Apnea - Alcohol/Substance Use Hx Alcohol Use: Yes (few drinks nightly) - Smoking History Smoking history: Never smoked Have you smoked in the past 12 months: No - Social History ADL: Independent Place of : [facility] History of Recent Travel: No Home Medications - Allergies Allergies/Adverse Reactions: Allergies Allergy/AdvReac Type Severity Reaction Status Date / Time No Known Allergies Allergy Verified 09/24/18 09:36 - Home Medications Home Medications: Ambulatory Orders Albuterol Sulfate [Proair Hfa] 8.5 gm IH DAILY 09/24/18 Allopurinol [Zyloprim -] 300 mg PO DAILY 09/24/18 Aspirin [ASA -] 325 mg PO DAILY 09/24/18 Atorvastatin Ca [Lipitor] 80 mg PO HS 09/24/18 Clopidogrel Bisulfate [Clopidogrel] 75 mg PO DAILY 09/24/18 Fluticasone/Umeclidin/Vilanter [Trelegy Ellipta 100-62.5-25] 1 each IH DAILY 09/13 Montelukast Na [Singulair -] 10 mg PO HS 09/24/18 Olmesartan/Hydrochlorothiazide [Benicar Hct 40-12.5 mg Tablet] 1 each PO DAILY 09/24/18 Pantoprazole Sodium 40 mg PO DAILY 09/24/18 Pramipexole Dihydrochloride [Mirapex -] 0.125 mg PO HS@1999 #30 tablet 09/26/18 Alcohol Antiseptic Pads [Alcohol Prep Pads] 1 each ACHS #100 med..pad Blood Sugar Diagnostic [Test Strips] 1 each [facility] #100 strip 09/27/18 Insulin (Levemir) [Levemir Vial] 10 unit SQ HS #1 vial 09/27/18 Lancets 1 each [facility] #100 each 09/27/18 Miscellaneous Medical Supply [Glucometer Device] 1 each AD ASDIR #1 kit Pen Needle, Diabetic [[place]] 1 each HS #30 dis.needle 09/27/18 Syringe with Needle, 1 ml [Allergy Syringe] 1 each HS #30 disp.syrin Family Disease History - Family Disease History Family History: Denies Review of Systems - Review of Systems Constitutional: reports: Weakness. denies: No Symptoms, Chills, Diaphoresis, Fever, Lethargy, Loss of Appetite, Malaise, Night Sweats, Unintentional Wgt. Loss, Other Eyes: denies: No Symptoms, Blind Spots, Blurred Vision, Double Vision, Eye Pain , Floaters, Photophobia, Recent Change in Vision, Other HENT: denies: No Symptoms, Difficult Swallowing, Ear Discharge, Ear Pain, Epistaxis, Gingival Bleeding, Hearing Loss, Mouth Swelling, Nasal Congestion, Ocular Prosthesis, Throat Pain, Toothache, Ringing in Ears, Other Neck: denies: No Symptoms, Decreased ROM, Lumps, Pain on Movement, Stiffness, Swollen Glands, Tenderness, Other Cardiovascular: denies: No Symptoms, Chest Pain, Edema, Palpitations, Shortness of Breath, Other Respiratory: reports: Snoring. denies: No Symptoms, Cough, Exercise Intolerance , Hemoptysis, Orthopnea, PND, SOB, SOB on Exertion, Wheezing, Other Gastrointestinal: denies: No Symptoms, Abdominal Pain, Bloating, Constipation, Diarrhea, Dysphagia, Indigestion, Melena, Nausea, Rectal Bleeding, Vomiting, Vomiting Blood, Other Genitourinary: denies: No Symptoms, Burning, Discharge, Dysuria, Flank Pain, Frequency, Hematuria, Incontinence, Lesions, Menses, Pain, Testicular Mass, Testicular Pain, Testicular Swelling, Urgency, Vaginal Bleeding, Other Breasts: denies: No Symptoms Reported, See HPI, Breast Implants, Discharge from Nipple, Lumps, Pain, Skin Changes, Other Musculoskeletal: denies: No Symptoms, Back Pain, Crepitus, Decreased ROM, Extremity Pain, Joint Pain, Joint Swelling, Muscle Pain, Muscle Cramps, Muscle Weakness, Other Integumentary: denies: No Symptoms, Blister, Bruising, Change in Color, Eczema, Erythema, Incision, Lesions, Lump, Pallor, Pruritis, Rash, Wound, Other Neurological: denies: No Symptoms, Change in LOC, Change in Speech, Confusion, Dizziness, Headache, Incoordination, Numbness, Parasthesia, Pre-Existing Deficit , Seizure, Syncope, Tremors, Unsteady Gait, Weakness, Other Endocrine: denies: No Symptoms, Excessive Sweating, Flushing, Increased Hunger, Increased Thirst, Intolerance to Cold, Intolerance to Heat, Unexplained Weight Gain, Unexplained Weight Loss, Other Hematology/Lymphatic: denies: No Symptoms, Easily Bruised, Excessive Bleeding, Swollen Glands, Other Psychiatric: denies: No Symptoms, Altered Sleep Pattern, Anxiety, Depression, Hallucinations, Panic, Paranoia, Suicidal, Other - Risk Factors Known Risk Factors: Yes: Hypercholesterolemia, Hypertension, Prior LA /Emb Stroke Vital Signs: Vital Signs Temperature 98.1 F 09/27/18 10:16 Pulse Rate 58 L 09/27/18 10:16 Respiratory Rate 20 09/27/18 10:16 Blood Pressure 161/95 09/27/18 10:16 O2 Sat by Pulse Oximetry (%) 96 09/27/18 08:31 Constitutional: Yes: Well Nourished, No Distress, Calm Eyes: Yes: WNL, Conjunctiva Clear, EOM Intact, PERRL HENT: Yes: WNL, Atraumatic, Normocephalic Neck: Yes: WNL, Supple, Trachea Midline Respiratory: Yes: WNL, Regular, CTA Bilaterally. No: Rales, Rhonchi, SOB, Wheezes Gastrointestinal: Yes: WNL, Normal Bowel Sounds, Soft. No: Distention, Tenderness Renal/: Yes: WNL Cardiovascular: Yes: WNL, Regular Rate and Rhythm. No: Bradycardia, Tachycardia , Pulse Irregular, Gallop, Rub, Varicosities JVD: No Carotid Bruit: No PMI: Non-Displaced Heart Sounds: Yes: S1, S2. No: Split S2, S3, S4, Clicks, Gallop, Rub, Bruit Murmur: No: Systolic Murmur, Diastolic Murmur Musculoskeletal: Yes: WNL Extremities: Yes: WNL Edema: No Peripheral Pulses WNL: Yes Neurological: Yes: Alert, Oriented Psychiatric: Yes: Alert, Oriented - Other Data Labs, Other Data: CBC, BMP 09/25/18 05:15 09/25/18 05:15 INR, PTT INR 1.13 (0.83-1.09) H 09/24/18 01:33 nsr 64bpm, sinus arrhythmia, LAD, nsst Echo: Report Reviewed Imaging - Results Chest X-ray: Report Reviewed, Image Reviewed EKG: Report Reviewed, Image Reviewed Other: Report Reviewed, Image Reviewed (tele-nsr, sinus bradycardia mainly at nighttime) Assessment/Plan 83 year old man with pmh HTN, DMII, HLD, CHF unknown details, COPD, MIKE, h/o CVA 2016 admitted with L sided weakenss aphasia, initial concern for TIA/CVA but felt to be more likely metabolic in origin, during admission noted to have periods of sinus bradycardia. states that he has been on bystolic for at least a year for HTN. 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 denies lightheadedness, dizziness, syncope, near syncope, fatigue, chest pain, sob. Bradycardia-sinus bradycardia, asymptomatic -tele reviewed, sinus itz at nighttime when sleeping -NSR during daytime and pt increases HR appropriately -pt has known MIKE not on cpap -also on bystolic 20mg at home for HTN -agree with stopping bblocker and use alternative agent for HTN -outpatient fup and consider repeating sleep study to re-evaluate MIKE and treat if indicated -ensure TFts and electrolytes wnl -no additional inpatient cardiac work up needed at this time -[facility] outpatient fup and repeat holter monitor
[2018-09-27 11:34] VITALS: BMI 28.6
--- NOTE | 2018-09-27 12:08 | PN ---
Teaching Attending Note Name of Resident: Lucas Orantes ATTENDING PHYSICIAN STATEMENT I saw and evaluated the patient. I reviewed the resident's note and discussed the case with the resident. I agree with the resident's findings and plan as documented. SUBJECTIVE:asymptomatic. deneis CP, SOB, fever, chills, N/V/C/D, dizzyness OBJECTIVE: Last Vital Signs Temp Pulse Resp BP Pulse Ox 98.1 F 58 L 20 161/95 96 09/27/18 10:16 09/27/18 10:16 09/27/18 10:16 09/27/18 10:16 09/27/18 08:31 General NAD CV S1 S2 RRR no murmur/rub/gallop ASSESSMENT AND PLAN: 83 year old Male with history of HTN, HLD, CHF (unknown diastolic versus systolic), DM 2 (diet controlled), COPD, Hx CVA (2016) brought in by EMS after fiancee complained of new onset LLE weakness, LUE weakness, L facial droop, and receptive/expressive dysphasia. Patient denies headache/visual disturbance/limb numbness. 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 He was also found to have fever and hyperglycemia in ED, which have since resolved. 1. Acute metabolic encephalopathy- TIA vs hypergylcemia. symptoms resolved. workup is negative. cont asa/statin. PT eval. 2. Asymptomatic bradycardia-HR improved with holding of beta shan. responds well to activity. TSH WNL. cardio evaluated and no need for further workup at this time. 3. New onset DM- A1c 12. improved glycemic control. taught by RN how to administer insulin. informed to make sugar log and document readings and follow up with PMD for further adjustment. 4. obesity- BMI 27.5. counseled on lifestyle modifications. weight loss goal 1 lb/week 5. PATRICK- due to hyperglycemia and dehydration. now resolved 6. RLS-started on prampixole 7. HTN- cont home medications 8. COPD- cont inhalers 9. DVT ppx- hep sq 10. d/c home
--- NOTE | 2018-09-27 13:21 | DS ---
Physical Exam: SUBJECTIVE: Patient seen and examined at bedside. Reports no acute complaints. Denies any ongoing weakness, sensory changes, difficulty with speech. OBJECTIVE: Vital Signs Period Temp Pulse Resp BP Sys/Rick Pulse Ox Last 24 Hr 97.6 F-99.2 F 48-67 18-20 142-161/79-95 96-96 PHYSICAL EXAM GENERAL: A&Ox3, NAD HEENT: NC/AT, EOMI, PERRLA, anicteric sclera, MMM NECK: Trachea midline, full range of motion, supple, no LAD, no JVD LUNGS: Breath sounds equal, clear to auscultation bilaterally, no wheezes, no crackles, no accessory muscle use. HEART: borderline bradycardic, no m/r/g ABDOMEN: +bs, soft, NT, ND EXTREMITIES: 2+ pulses, wwp, no edema NEUROLOGICAL: chief cook, motor, sensory, cerebellar systems w/o focal deficit, no extinction to double simultaneous stimulation, no hemineglect PSYCH: Normal mood, normal affect. SKIN: Warm, dry, normal turgor, no rashes or lesions noted LABS Laboratory Results - last 24 hr 09/26/18 09/26/18 09/26/18 15:50 17:14 21:45 POC Glucometer 267 233 Vitamin B12 887 TSH RPR Titer 09/27/18 09/27/18 09/27/18 05:49 06:30 06:30 POC Glucometer 126 Vitamin B12 TSH 3.09 RPR Titer Nonreactive 09/27/18 11:47 POC Glucometer 172 Vitamin B12 TSH RPR Titer HOSPITAL COURSE: Date of Admission:09/24/18 Patient is an 83 y/o M w/ PMHx HTN, HLD, CHF (unknown subtype), COPD, CVA in 2016, reportedly borderline DM, BIBEMS following sudden onset left-sided facial droop, LLE and LUE weakness, slurred speech, and hemineglect. Admitted for stroke workup. BGM on presentation ~500, A1c 12.9. Patient was diagnosed with diabetes mellitus during this hospitalization and initiated on insulin therapy with education provided. Neurology was consulted for stroke evaluation, however all symptoms self-resolved by time of neurology encounter. Head CT, Brain MRI, Brain MRA, and carotid dopplers were all benign. Patient had been taking bystolic at home and was found to be recurrently bradycardic. Beta-blockade was held and HR improved. Cardiology was consulted and recommended no inpatient intervention, but did recommend outpatient followup. Neurology recommended no urgent/emergent interventions but had concern for EPS and RLS and started patient on pramipexole therapy. He was discharged with instructions to resume home medications apart from bystolic, to begin insulin and pramipexole, and have close followup with primary care, neurology, and cardiology. Date of Discharge: 09/27/18 Minutes to complete discharge: 40 Discharge Summary Reason For Visit: TRANSIENT ISCHEMIC ATTACK Current Active Problems Diabetes (Acute) HTN (hypertension) (Acute) TIA (transient ischemic attack) (Acute) Condition: Stable - Instructions Diet, Activity, Other Instructions: You were hospitalized for symptoms concerning for a stroke. CT scan, MRI and MRA studies, and carotid artery study, were all reassuring. Because your symptoms resolved, the diagnosis is Transient Ischemic Attack, which places you at increased risk of sustaining a stroke. You were seen and evaluated by a specialist physician in neurology who ordered studies to followup as an outpatient and started medication for symptom relief. Additionally, you were found to have a slow heart rate. We withheld one of your home medications, Bystolic, which may have caused your slow heart rate, and recommend that you do not resume taking it prior to following up with your doctors as an outpatient. You were seen and evaluated by a specialist in cardiology who determined that you did not require any cardiology intervention. You will require outpatient follow up with cardiology. Your echocardiogram did not show any major abnormality. Additionally, your lab studies indicated that you have diabetes and will require taking insulin to keep your blood sugar under control. Your nurse instructed you in administering insulin injections. You may in the future be able to discontinue insulin and take oral medications to control diabetes, but at this time you do require the injections. You are being discharged to resume your home medications and the new medications you were started on as follows. You will require outpatient followup with your primary care doctor, neurology, and cardiology. Referrals have been made on your behalf. Please see these providers within 1 week of discharge. If you experience any sudden weakness, loss of consciousness, change in sensation, slurred speech, facial droop, chest pain, shortness of breath, fever, chills, or any other new or concerning symptoms, please return to the Emergency Department. Medical recommendations: Please resume all your home medications with the exception of Bystolic. Do not take Bystolic prior to your outpatient follow up. You are being provided with prescriptions for Pramipexole for relief of neurological symptoms. You are being provided with insulin to control your diabetes. You will take 10 units of long-acting insulin nightly. Insulin and all the supplies you will need to administer it have been prescribed to your pharmacy. Check your sugars prior to each meal and log them, bring this with you to your next doctors appointment to see if you require further adjustment to your insulin. Your diabetic number (A1c) should be checked in 3 months Please take all medications as directed and do not make any changes to your medication regimen without first consulting your doctor. Referrals: Ramakrishna Sanford MD [Staff Physician] - Osei Castorena MD [Staff Physician] - David Rico [Primary Care Provider] - Disposition: HOME - Home Medications Comprehensive Discharge Medication List: Ambulatory Orders Albuterol Sulfate [Proair Hfa] 8.5 gm IH DAILY 09/24/18 Allopurinol [Zyloprim -] 300 mg PO DAILY 09/24/18 Aspirin [ASA -] 325 mg PO DAILY 09/24/18 Atorvastatin Ca [Lipitor] 80 mg PO HS 09/24/18 Clopidogrel Bisulfate [Clopidogrel] 75 mg PO DAILY 09/24/18 Fluticasone/Umeclidin/Vilanter [Trelegy Ellipta 100-62.5-25] 1 each IH DAILY 09/13 Montelukast Na [Singulair -] 10 mg PO HS 09/24/18 Olmesartan/Hydrochlorothiazide [Benicar Hct 40-12.5 mg Tablet] 1 each PO DAILY 09/24/18 Pantoprazole Sodium 40 mg PO DAILY 09/24/18 Pramipexole Dihydrochloride [Mirapex -] 0.125 mg PO HS@2000 #30 tablet 09/26/18 Alcohol Antiseptic Pads [Alcohol Prep Pads] 1 each [facility]CHS #100 med..pad Blood Sugar Diagnostic [Test Strips] 1 each [facility] #100 strip 09/27/18 Insulin (Levemir) [Levemir Vial] 10 unit SQ HS #1 vial 09/27/18 Lancets 1 each [facility] #100 each 09/27/18 Miscellaneous Medical Supply [Glucometer Device] 1 each AD ASDIR #1 kit Pen Needle, Diabetic [[place]] 1 each HS #30 dis.needle 09/27/18 Syringe with Needle, 1 ml [Allergy Syringe] 1 each HS #30 disp.syrin This patient is new to me today: No Emergency Visit: No Critical Care patient: No - Discharge Referral Referred to [facility] Med [facility].: No
--- NOTE | 2018-09-27 13:53 | EKG ---
Test Reason : Blood Pressure : / mmHG Vent. Rate : 055 BPM Atrial Rate : 055 BPM P-R Int : 214 ms QRS Dur : 094 ms QT Int : 430 ms P-R-T Axes : -08 -25 -10 degrees QTc Int : 411 ms SINUS BRADYCARDIA WITH 1ST DEGREE A-V BLOCK MINIMAL VOLTAGE CRITERIA FOR LVH, MAY BE NORMAL VARIANT BORDERLINE ECG WHEN COMPARED WITH ECG OF 24-SEP-2018 02:07, T WAVE INVERSION NOW EVIDENT IN INFERIOR LEADS Confirmed by MD Jeffrey, Lucas ([id number]) on 09/27/2018 1:53:02 PM Referred By: Tanmay LEAL Confirmed By:Lucas Murphy MD
--- NOTE | 2018-09-27 13:55 | EKG ---
Test Reason : Blood Pressure : / mmHG Vent. Rate : 064 BPM Atrial Rate : 064 BPM P-R Int : 234 ms QRS Dur : 096 ms QT Int : 368 ms P-R-T Axes : 000 -35 024 degrees QTc Int : 379 ms SINUS RHYTHM WITH MARKED SINUS ARRHYTHMIA WITH 1ST DEGREE A-V BLOCK LEFT AXIS DEVIATION NONSPECIFIC ST AND T WAVE ABNORMALITY ABNORMAL ECG NO PREVIOUS ECGS AVAILABLE Confirmed by MD Jeffrey, Lucas ([id number]) on 09/27/2018 1:54:45 PM Referred By: Confirmed By:Lucas Murphy MD
[2018-09-27 14:34] VITALS: BP 131/82; PULSE 60; TEMP 98.5
[2018-09-28 08:06] LABS: SERUM IRON SATURATION 22 % (15-55); TOTAL IRON BINDING CAPACITY 175 ug/dL (250-450); UIBC 136 ug/dL (111-343)
== END 2018-09-27 14:45 | disposition home or self-care (01) | DRG 637 ==
LOC: JER 00:17 → JERBED 01:42 → JICU 08:25 → J4S 20:46
PROVIDERS: ADMIT Internal Medicine; ATTEND Internal Medicine
DX: E11.65 Type 2 diabetes mellitus with hyperglycemia (principal); G93.41 Metabolic encephalopathy; N17.9 Acute kidney failure, unspecified; G45.9 Transient cerebral ischemic attack, unspecified; J44.9 Chronic obstructive pulmonary disease, unspecified; E78.5 Hyperlipidemia, unspecified; I11.0 Hypertensive heart disease with heart failure; I50.9 Heart failure, unspecified; R29.709 NIHSS score 9; E88.09 Other disorders of plasma-protein metabolism, not elsewhere classified; E66.9 Obesity, unspecified; E87.6 Hypokalemia; Z68.33 Body mass index [BMI] 33.0-33.9, adult; E86.0 Dehydration; M10.9 Gout, unspecified; K21.9 Gastro-esophageal reflux disease without esophagitis; R50.9 Fever, unspecified; G25.81 Restless legs syndrome; E11.42 Type 2 diabetes mellitus with diabetic polyneuropathy; R00.1 Bradycardia, unspecified; G47.33 Obstructive sleep apnea (adult) (pediatric)
CPT/HCPCS: 36415; 36600; 70450-TC; 70496-TC; 70544-TC; 70551-TC; 71045-TC-FY; 76775-TC; 76856-TC; 80048; 80053; 80307; 81003; 81015; 82009; 82465; 82550; 82553; 82607; 82803; 82962; 83036; 83540; 83550; 83718; 83721; 83735; 84100; 84443; 84478; 84484; 85025; 85027; 85610; 86593; 86850; 86900; 86901; 87040; 87086; 93005; 93010; 93306-TC; 93880-TC; 95816; 97116-GP; 97161-GP; 99285-25; J0131; J1644; J7030